=== PATIENT | male | born 1955 | race Caucasian/White ===

== ENCOUNTER → 2021-10-01 13:04 | Outpatient (BNVA) | payer OTHER, SELFPAY | PROVIDERS: PCP Internal Medicine; Visit Provider Hospitalist ==

== ENCOUNTER 2021-11-08 16:08 | Outpatient (REF) | payer OTHER, SELFPAY ==
--- NOTE | ~2021-11-08 | CT_ITS ---
EXAMINATION: CT CHEST SCREENING CLINICAL INFORMATION: Smoking for 38 years. One pack a day. COMPARISON: CT chest 06/01/2020 from [facility]. TECHNIQUE: Multidetector volumetric CT imaging of the chest is performed without contrast using low dose technique. Additional 2D coronal and sagittal reformatted images and axial 3D maximum intensity projection (MIP) images are generated on the CT workstation. This CT examination was performed using dose optimization techniques as appropriate, variously including the following: *Automated exposure control *Adjustment of mA and/or kV according to patient size (this includes techniques or standardized protocols for targeted exams where dose is matched to indication/reason for exam; i.e. extremities or head) *Use of iterative reconstruction technique DLP: 63 mGy-cm FINDINGS: LUNGS: The lungs are well inflated with 4.5 mm nodule left lower lobe superior segment, axial image 20/6, 3 mm nodule right lower lobe image 260/6, 1 mm calcified nodule left lower lobe superior segment, axial image 191/6, 1 mm calcification right lower lobe, axial image 337/6, and 5 mm nodule right middle lobe, axial image 345/6. MEDIASTINUM: The heart size and great vessels are normal caliber. There is no pericardial effusion. Central trachea and the bronchi are widely patent. No abnormal size mediastinal or hilar lymph nodes seen. No pericardial effusion seen. The thyroid lobes are symmetrical and normal. PLEURA: There is no pleural effusion. No pleural mass or thickening. AXILLA: No lymphadenopathy. UPPER ABDOMEN: Visualized liver, spleen, pancreas and bilateral adrenal glands are unremarkable. The gallbladder has been surgically removed. OSSEOUS STRUCTURES: There is ventral spondylosis mid and lower dorsal spine. No lytic or sclerotic process seen. CT/CT lung screening IMPRESSION: Multiple pulmonary nodules are stable compared to outside CT chest 06/01/2020. ASSESSMENT: Lung-RADS category 2: Benign RECOMMENDATION: Low-dose annual CT chest.
== END 2021-11-08 16:09 | disposition home or self-care (01) ==
LOC: HO.CT 16:08
PROVIDERS: PCP Internal Medicine; Visit Provider Physician Assistant Medical
DX: Z12.2 Encounter for screening for malignant neoplasm of respiratory organs (principal); Z87.891 Personal history of nicotine dependence
CPT/HCPCS: 71271; G0296

== ENCOUNTER → 2022-04-02 09:15 | Outpatient (BNVA) | payer MEDICARE, SELFPAY | PROVIDERS: PCP Internal Medicine; Visit Provider Hospitalist | DX: R91.8 Other nonspecific abnormal finding of lung field (principal); R05.9 Cough, unspecified; G47.33 Obstructive sleep apnea (adult) (pediatric); G47.34 Idiopathic sleep related nonobstructive alveolar hypoventilation; Z87.891 Personal history of nicotine dependence | CPT/HCPCS: 99212 ==

== ENCOUNTER 2022-09-02 08:59 | Outpatient (REF) | payer MEDICARE, SELFPAY ==
--- NOTE | 2022-09-02 11:08 | PFT_ITS ---
INDICATION: Dyspnea. SPIROMETRY: FEV1 to FVC of 83% with an FEV1 of 2.93 L, which is 85% predicted and FVC of 3.52 L, which is 75% predicted. No significant response to bronchodilators noted. Maximum voluntary ventilation 99% predicted. LUNG VOLUMES: Total lung capacity 88% predicted with an expiratory reserve volume of 21% predicted. DIFFUSION CAPACITY: DLCO 85% predicted. COMPARISONS: None. INTERPRETATION: No obstructive nor restrictive ventilatory defects identified. No significant response to bronchodilators noted. Normal maximum voluntary ventilation. Lung volumes are within normal limits. There is a decrease in the expiratory reserve volume secondary to an elevated BMI. Diffusion capacity is within normal limits. Otherwise, clinical correlation warranted. Oskar Castillo MD MR/MODL / [id number]
== END 2022-09-02 09:00 | disposition home or self-care (01) ==
LOC: HO.RESP 08:59
PROVIDERS: PCP Internal Medicine; Visit Provider Hospitalist
DX: R05.9 Cough, unspecified (principal)
CPT/HCPCS: 94060; 94727; 94729

== ENCOUNTER → 2022-09-26 09:07 | Outpatient (BNVA) | payer MEDICARE, SELFPAY | PROVIDERS: PCP Internal Medicine; Visit Provider Hospitalist | DX: G47.33 Obstructive sleep apnea (adult) (pediatric) (principal); G47.34 Idiopathic sleep related nonobstructive alveolar hypoventilation; R05.9 Cough, unspecified; R91.8 Other nonspecific abnormal finding of lung field; Z87.891 Personal history of nicotine dependence | CPT/HCPCS: 99212 ==

== ENCOUNTER 2022-12-31 07:47 | Outpatient (REF) | payer MEDICARE, SELFPAY ==
--- NOTE | ~2022-12-31 | CT_ITS ---
EXAMINATION: LUNG CANCER SCREENING CT CHEST WITHOUT CONTRAST CLINICAL INFORMATION: Former smoker with 20 pack year history, quit 10 years ago COMPARISON: 11/08/2021 TECHNIQUE: Multidetector volumetric CT imaging of the chest was obtained noncontrast using low dose screening CT technique. Axial thin section 0.625 mm reformations in soft tissue and lung windows were obtained. Sagittal and coronal reformations were obtained. Axial MIP images were also created and reviewed. This CT examination was performed using dose optimization techniques as appropriate, variously including the following: *Automated exposure control *Adjustment of mA and/or kV according to patient size (this includes techniques or standardized protocols for targeted exams where dose is matched to indication/reason for exam; i.e. extremities or head) *Use of iterative reconstruction technique TOTAL EXAM DLP: 64 mGy-cm. FINDINGS: PULMONARY NODULES (see contreras images): No suspicious pulmonary nodules. Stable 4.6 mm mean diameter nodule in the superior segment of the left lower lobe, 3 mm nodule within the middle lobe and 4.6 mm nodule in the middle lobe. Stable punctate nodule right upper lobe. There are a couple punctate calcified granulomata. LUNGS / PLEURA: Minimal emphysema No pleural effusion or pneumothorax. MEDIASTINUM / YAZMIN: Heart normal in size without pericardial effusion. Stable mild aneurysmal dilatation of ascending aorta measuring up to 4.2 cm. Great vessels normal caliber. No lymphadenopathy. Coronary calcifications absent. Imaged thyroid gland unremarkable. CHEST WALL / AXILLA: Unremarkable. UPPER ABDOMEN: Included portions grossly unremarkable allowing for limitations in technique. OSSEOUS STRUCTURES: No acute or suspicious osseous abnormalities. CT/CT lung screening IMPRESSION: * No evidence of pulmonary malignancy. * There are no pulmonary nodules that meet criteria for short interval follow-up at this time. * Stable mild aneurysmal dilatation of ascending aorta measuring 4.2 cm. ASSESSMENT: Lung RADS category: 2. Benign appearance or behavior. Nodules with a very low likelihood of becoming a clinically active cancer due to size or lack of growth. Continue annual screening with low-dose CT in 12 months. Probability of malignancy less than 1%. INCIDENTAL FINDINGS (S CATEGORY): None. RECOMMENDATION: Follow up low dose CT chest in 1 year.
== END 2022-12-31 07:48 | disposition home or self-care (01) ==
LOC: HO.CT 07:47
PROVIDERS: PCP Internal Medicine; Visit Provider Physician Assistant Medical
DX: Z12.2 Encounter for screening for malignant neoplasm of respiratory organs (principal); F17.210 Nicotine dependence, cigarettes, uncomplicated
CPT/HCPCS: 71271

== ENCOUNTER 2023-12-23 10:27 | Outpatient (AMB) | payer MEDICARE, SELFPAY ==
[2023-12-23 10:33] VITALS: PULSE 58; O2SAT 96; BMI 29.6
--- NOTE | 2023-12-23 10:33 | A.OFFVIS_ITS ---
Intake Vital Signs 12/23/23 10:33 Height 5 ft 11 in Weight 212 lb BMI 29.6 Pulse 58 Pulse Source Pulse Oximeter Pulse Oximetry (%) 96 Oxygen Delivery Method Room Air Intake Visit Reasons: Obstructive sleep apnea Bi Consultant Required: No Allergies No Known Allergies Allergy (Mild, Unverified 12/23/23 10:34) N/A HPI HPI Comments History of Present Illness Details The patient is a 68-year-old gentleman with a known history of high blood pressure in addition to a CVA. He was having evidence of daytime drowsiness and therefore the patient underwent a sleep study. During the sleep study which was a home sleep study the patient did have evidence of nocturnal hypoxia and also an AHI of 10 events per hour consistent with mild sleep apnea. The patient started on PAP therapy. He has tried multiple masks. The nasal pillows, P 10 has been the most comfortable mask for him. We were able to download his machine. His AHI is down to 0.1. His average pressure is 12 cm. The machine is set up APAP with a ramp of 4 then starts at 8-16.The patient tolerated the pressures well. He is concerned that he does have some air leakage. Have reassured him that he is getting enough therapy that even if he has some air leakage is not affecting his response to therapy. The patient did have his mask on and we were able to check mask fit on the settings. The patient is fit was perfectly fine. Explained to him that the air will exit through the mask and therefore feel like is actually leaking. This sleep study also demonstrated that he had significant hypoxia. Therefore, in view of his underlying cardiovascular and cerebrovascular studies the patient should have a nocturnal oximetry to make sure that he is getting adequate therapy. I did talk to his [employer] company and they will perform this while he is of CPAP. also to note the patient is a former smoker. He quit about 10 years ago or less. The patient smoked for most of his life. At this point the patient still qualifies for the lung cancer screening program. I will refer him at this time. In the meantime the patient has had CT scans in the past demonstrating pulmonary nodules. He has not had a CAT scan more than a year. 04/02/2022 the patient is here for a pulm onary follow-up visit. Overall the denys ent has been doing well on the CPAP. The CPAP therapy has been affecting beneficial. He uses it more than 4 hours a night. Average pressure is 13. His AHI is below 1. he is tolerating the P 10 nasal pillows with a chinstrap. Working well. He does complaint of a worsening cough. Sometimes is productive in nature and typically worse in the morning. [id number] severity. Sometimes he feels is coming from his chest. He is wondering if he has COPD. He is participating in the lung cancer screening program. we did review his CT scan without any significant emphysema. He does have some pulmonary nodules that do need follow-up. He is scheduled to have a repeat CT scan through the lung cancer screening program in October 2022. the patient does not have any inhalers. I do believe that his cough is mainly in upper airway cough syndrome specially after using the CPAP pushing his secretions down to his post superior pharynx. I do recommend that he provides nasal washings. If the patient is no better he can always get an x-ray. The patient will return 6 months and will perform pulmonary function studies at that time. 09/26/2022 the patient is here for a pul monary follow-up visit. The patient overall is doing well. He has been using the CPAP. The CPAP therapy continues to be affecting beneficial. Does use it for more than 4 hours a night. He has been getting supplies regularly. From a respiratory status he is also doing better. Still has some dyspnea on exertion. Mild in severity. He is active exercising and this is improving his overall exercise capacity. He is working on weight management. We did review his pulmonary function studies demonstrating normal lung Lung capacity. The patient is scheduled to have a repeat CT scan as part of the lung cancer screening program sometime in October 2022. otherwise patient is without any other concerns. 12/23/2023 the patient is here for pulmonary follow-up visit. The patient has been doing well on the CPAP. The CPAP therapy continues to be affecting and beneficial. He does use it for more than 4 hours a night. His average AHI appears to be less than 1. His average pressure is around 12. Therefore the APAP is set up 8-14 which is perfect. He is using the nasal pillows. he is using the chinstrap and this is helping him with the early. He has no significant air leak at this time. The patient states that he had COVID back few months ago. Although was not too bad. Denies any respiratory issues with it. Does have some fevers. The patient also has been participating in the lung cancer screening program. He does have a CT scan of the chest coming up in the few weeks. Will follow-up with a CT scan at that time. The patient is also wondering about other alternatives to CPAP. 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 I did not advise him on the inspire as due to the fact that this is the surgical procedure and does have risk and is not as effective as CPAP. he is going to consider the oral mandibular device. If he has any other issues he will call for an earlier assessment. Otherwise follow- up in a year's time. [facility] Medical History (Updated 01/06/23 @ 07:57 by Maryana De La Torre PA-C) History of CVA (cerebrovascular accident) Mild ascending aorta dilatation BPH (benign prostatic hyperplasia) SNHL (sensorineural hearing loss) GERD (gastroesophageal reflux disease) Hyperlipidemia Hypertension Personal history of nicotine dependence Pulmonary nodules Nocturnal hypoxia [place] (obstructive sleep apnea) Surgical History (Updated 11/05/21 @ 09:29 by Maryana De La Torre PA-C) History of prostate biopsy History of lithotripsy History of adenoidectomy History of squamous cell carcinoma excision History of endoscopy History of colonoscopy Social History (Updated 11/08/21 @ 13:31 by Maryana De La Torre PA-C) Patient Tobacco Use Status: Former Tobacco user Quit Date: 2014 Tobacco use type: Cigarette Years Smoked: onset 18, 1/2-1ppd x 40yr, 30PYH, quit 2014 Review of Systems Const Denies night sweats ENT Denies change in voice, Denies lip swelling, Denies mouth pain, Reports nasal congestion, Reports nasal discharge and Denies tongue swelling Card Denies chest pain and Denies dyspnea on exertion Resp Denies chest congestion, Denies cough and Denies dyspnea on exertion GI Denies abdominal pain Musc Denies no additional complaints Neuro Denies Neuro-related abnormal movements Psych Denies no additional complaints Oral/Lymph Denies easy bleeding and Denies lymphadenopathy Aller/Immun Denies lip swelling and Denies tongue swelling Physical Exam Vital Signs: Last Vital Signs Pulse 58 12/23/23 10:33 Pulse Ox 96 12/23/23 10:33 Oxygen Delivery Method Room Air 12/23/23 10:33 BMI result Body Mass Index 29.6 Const General: alert Chest Chest palpation & inspection: normal inspection of the chest Resp Auscultation: clear to auscultation bilaterally, no crackles, no rales, no rhonchi and no wheezes Cardio Rate: regular rate Rhythm: regular rhythm Heart sounds: S1 normal heart sound present and S2 normal heart sound present GI Palpation (GI): Soft to palpation and nontender Auscultation: normal bowel sounds General: Yes no CVA tenderness Back/Spine/Pelvis Back: no CVA tenderness Assessment & Plan Assessment & Plan (1) Pulmonary nodules: Code(s): R91.8 - Other nonspecific abnormal finding of lung field (2) Former heavy tobacco smoker: Code(s): Z87.891 - Personal history of nicotine dependence (3) [place] (obstructive sleep apnea): Code(s): G47.33 - Obstructive sleep apnea (adult) (pediatric) (4) Nocturnal hypoxia: Code(s): G47.34 - Idiopathic sleep related nonobstructive alveolar hypoventilation Plan continue APAP 8-14, p10 nasal pillows chinstrap continue lung cancer screening program, LDCT 12/2023 nasal rinsing prior to CPAP follow-up in 12 months Coding Level of Care Code Est Pt Level 4 (16233) Diagnoses Pulmonary nodules R91.8 Former heavy tobacco smoker Z87.891 [place] (obstructive sleep apnea) G47.33 Nocturnal hypoxia G47.34 Time Spent (min) 18
== END 2023-12-23 11:01 | disposition home or self-care (01) ==
PROVIDERS: PCP Internal Medicine; Visit Provider Hospitalist
DX: R91.8 Other nonspecific abnormal finding of lung field (principal); Z87.891 Personal history of nicotine dependence; G47.33 Obstructive sleep apnea (adult) (pediatric); G47.34 Idiopathic sleep related nonobstructive alveolar hypoventilation
CPT/HCPCS: 99214

== ENCOUNTER → 2023-12-23 10:27 | Outpatient (BNVA) | payer MEDICARE, SELFPAY | PROVIDERS: PCP Internal Medicine; Visit Provider Hospitalist | DX: R91.8 Other nonspecific abnormal finding of lung field (principal); G47.33 Obstructive sleep apnea (adult) (pediatric); G47.34 Idiopathic sleep related nonobstructive alveolar hypoventilation; Z87.891 Personal history of nicotine dependence | CPT/HCPCS: 99212 ==

== ENCOUNTER 2024-01-07 15:38 | Outpatient (REF) | payer MEDICARE, SELFPAY ==
--- NOTE | ~2024-01-07 | CT_ITS ---
EXAMINATION: CT CHEST SCREENING CLINICAL INFORMATION: Personal history of nicotine dependence. Former smoker. One pack per day for 20 years. Quit 10 years ago. COMPARISON: 12/31/2022 TECHNIQUE: Multidetector volumetric CT imaging of the chest is performed without contrast using low dose technique. Additional 2D coronal and sagittal reformatted images and axial 3D maximum intensity projection (MIP) images are generated on the CT workstation. This CT examination was performed using dose optimization techniques as appropriate, variously including the following: *Automated exposure control. *Adjustment of mA and/or kV according to patient size (this includes techniques or standardized protocols for targeted exams where dose is matched to indication/reason for exam; i.e. extremities or head). *Use of iterative reconstruction technique. DLP: 118 mGy-cm FINDINGS: LUNGS: Minimal emphysematous changes are again seen. Four pulmonary nodules are seen which are unchanged when compared to the prior study with the two largest measuring 6.0 cm and 4.5 cm in the superior segment of the left lower lobe (6:193) and the right middle lobe (6:373). The lungs are otherwise clear with no evidence of inflammation or new or worrisome nodules. MEDIASTINUM: The mediastinum is normal. CORONARY ARTERY CALCIFICATION: None visualized on this study. PLEURA: There is no pleural effusion. No pleural mass or thickening. AXILLA: No lymphadenopathy. UPPER ABDOMEN: Unremarkable. Status post cholecystectomy. OSSEOUS STRUCTURES: Unremarkable. CT/CT lung screening IMPRESSION: Unremarkable examination. ASSESSMENT: Lung-RADS category 2: Benign. RECOMMENDATION: Routine annual low-dose CT screening in 12 months.
== END 2024-01-07 15:39 | disposition home or self-care (01) ==
LOC: HO.CT 15:38
PROVIDERS: PCP Internal Medicine; Visit Provider Nurse Practitioner Family
DX: Z12.2 Encounter for screening for malignant neoplasm of respiratory organs (principal); Z87.891 Personal history of nicotine dependence
CPT/HCPCS: 71271

== ENCOUNTER 2025-01-13 13:34 | Outpatient (REF) | payer MEDICARE, SELFPAY ==
--- NOTE | ~2025-01-13 | CT_ITS ---
CLINICAL HISTORY: Z87.891 - Personal history of nicotine dependence CT lung cancer screening (LDCT) Comparison: CT/REG/AR/SR - CT LUNG SCREENING - 01/07/24 15:47 EDT Technique: Axial CT images of the chest using low-dose technique. Referring provider counseled the patient on shared decision-making for LDCT screening. Additional counseling was provided on smoking cessation. Effective radiation dose total: DLP 123.6 mGycm, CTDIvol 3 mGy. Findings: Lung: Mild emphysema. Stable 6 mm nodule of the right middle lobe series 4, image 107. Stable 3 mm nodule of the right upper lobe image 81. Stable 5.3 mm nodule of the left lower lobe image 63. Coronary artery calcifications: None Limited upper abdomen: Unremarkable Other: None Impression: LungRADS 2 - Benign Appearance: Continue annual screening with low dose Chest CT in 12 months. ##L2# Category 1: Normal; continue annual screening Category 2: Benign appearance or behavior, continue annual screening Category 3: Probably benign, [address] recommended Category 4A: Suspicious, [address] recommended; may consider PET/CT Category 4B: Suspicious, Additional diagnostics and/or tissue sampling recommended Category 4X: Suspicious, Additional diagnostics and/or tissue sampling recommended Category 0: Recalls (incomplete screen due to Incomplete coverage, Noise, Respiratory motion, Expiration, Obscured by acute abnormality) This document has been electronically signed by: Meliza Quezada MD on 01/16/2025 12:52:46
--- OUTSIDE RECORDS SUMMARY | 2025-01-13 15:23 | XMS_ITS | Encounter Summary ---
Author Organization [facility] Address [address] [place] [address] [place] [id number] Phone Care Team Providers Care And Drying Supervisor Cooking Casing Name Role Phone Sarkis Teague MD Primary Care Provider [phone] Ajit Hu MD Unavailable [phone] Encounter Details Date Type Department Care Team (Late st Contact Info) Description 05/25/2023 Procedure Pass [facility] Endoscopy Admitting Dept Virtual Department [address] [place] [address] Social History Tobacco Use Types Packs/Day Years Used Date Smoking Tobacco: Former Cigarettes 0.8 20 0 10/21/1971 - 10/21/1991 Smokeless Tobacco: Never Alcohol Use Standard Drinks/Week Comments Yes 0 (1 standard drink = 0.6 oz pur e alcohol) 3 drinks/month, wine Child or Family Care Answer Date Record ed Do you have problems with on e of the following making it difficult for you to work, study, or receive health care? No 06/20/2021 Education Answer Date Recorded Are you interested in help w ith more adult education (for example, completing high school, GED, job training, learning the [place] language, technical skills, or developing parenting skills)? No 06/20/2021 Are you concerned about learning? Not on file 06/20/2021 No 06/20/2021 Yes 06/20/2021 Food Answer Date Recorded Within the past 6 months we worried whether our food would run out before we got money to buy more. Never True 06/20/2021 Within the past 6 months the food we bought just didn't last and we didn't have enough money to get more. Never True Residential Stability Answer Date Recor ded What is your housing situation today? I have saul cai 06/20/2021 How many times have you move d in the past 12 months? Zero (I did not move) 06/20/2021 Paying for Meds Answer Date Recorded Do you have trouble paying for medicines? No 06/20/2021 Paying Utility Bills Answer Date Record ed Do you have trouble paying your heating or elect ricity bill? No 06/20/2021 Transportation Answer Date Recorded Has the lack of transportati on kept you from medical appointments or from getting medications? No 06/20/2021 Unemployment Answer Date Recorded Are you currently unemployed or working on a part-time or temporary basis, and looking for work? I choose not to answer 06/20/2021 Digital Access Answer Date Recorded No 03/06/2023 No 03/06/2023 Reliable internet access at home? Not on file 03/06/2023 Device with a working camera? Not on file Sex and Gender Information Value Date Recorded Sex Assigned at Male 06/19/2020 7:43 PM EDT Gender Identity Male 06/19/2020 7:43 PM EDT Sexual Orientation Not on file documented as of this encounter Plan of Treatment Upcoming Encounters Date Type Department Care Team (Late st Contact Info) Description 01/27/2025 8:00 AM EDT Appointment [facility] Internal Medicine [address] [place] [address] Sarkis Teague MD [address] [place] [address] [email or web address] documented as of this encounter Visit Diagnoses Not on filedocumented in this encounter Additional Health Concerns Assessment Noted Time PHQ-2 Depression Total Score: 0 06/24/20 22 6:59 AM EDT documented as of this encounter Care Teams And Drying Supervisor Cooking Casing Relationship Specialty Start Date End Date Sarkis Teague MD [address] [place] [address] [email or web address] PCP - General 09/10/17 Ajit Hu MD [address] [place] [id number] Cardiology 02/08/21 documented as of this encounter Additional Source Comments The information contained in this document represents components of the legal health record. It is not the complete legal health record.[facility]
--- OUTSIDE RECORDS SUMMARY | 2025-01-13 15:23 | XMS_ITS | Encounter Summary ---
Author Organization [facility] Address [address] [place] [address] Phone Care Team Providers Care Welder Repair Name Role Phone Sarkis Teague MD Unavailable [phone] Mikaela Avila PHONOGRAPH MECHANIC Unavailable [phone] Argentina Jeffries PHONOGRAPH MECHANIC Unavailable [phone] Sarkis Teague MD Primary Care Provider Ajit Hu MD Unavailable [phone] Encounter Details Date Type Department Care Team (Late st Contact Info) Description 05/22/2020 Procedure Pass [facility], Ct Scan - [address] [address] Social History Tobacco Use Types Packs/Day Years Used Date Smoking Tobacco: Former Cigarettes 0.5 15 1 973 - 1988 Smokeless Tobacco: Never Alcohol Use Standard Drinks/Week Comments Yes 0 (1 standard drink = 0.6 oz pur e alcohol) 4 to 5 eugene per month Sex and Gender Information Value Date Recorded Sex Assigned at Male 06/19/2020 7:43 PM EDT Gender Identity Male 06/19/2020 7:43 PM EDT Sexual Orientation Not on file documented as of this encounter Plan of Treatment Upcoming Encounters Date Type Department Care Team (Late st Contact Info) Description 01/27/2025 8:00 AM EDT Appointment [facility] Internal Medicine [address] [place] [address] Sarkis Teague MD [address] [place] [address] documented as of this encounter Visit Diagnoses Not on filedocumented in this encounter Additional Health Concerns Infection Onset Date Last Indicated Resolved Time CoV-Exposed Comment:Recent close contact documented in the COVID-19 PCR/PRO order 06/29/2021 07/03/2021 07/14/2021 1:22 AM E DT Assessment Noted Time PHQ-2 Depression Total Score: 0 11/14/19 8:30 AM EST documented as of this encounter Care Teams Welder Repair Relationship Specialty Start Date End Date Sarkis Teague MD [address] [place] [address] PCP - General 09/10/17 Sarkis Teague MD [address] [place] [address] Historical LMR Provider 07/27/17 02/07/21 Mikaela Avila, PHONOGRAPH MECHANIC [address] [place] [address] Historical LMR Provider 07/27/17 Argentina Jeffries PHONOGRAPH MECHANIC [address] [place] [address] Historical LMR Provider 07/27/17 02/07/21 Ajit Hu MD [address] [place] [id number] Cardiology 02/08/21 documented as of this encounter Additional Source Comments The information contained in this document represents components of the legal health record. It is not the complete legal health record.[facility]
--- OUTSIDE RECORDS SUMMARY | 2025-01-13 15:23 | XMS_ITS | Encounter Summary ---
Author Organization [facility] Address [address] [place] [address] Phone Care Team Providers Care Table Attendant Name Role Phone Sariks Teague MD Unavailable [phone] Mikaela Avila CAREER COUNSELOR Unavailable [phone] Argentina Jeffries CAREER COUNSELOR Unavailable [phone] Sarkis Teague MD Primary Care Provider [phone] Ajit Hu MD Unavailable [phone] Encounter Details Date Type Department Care Team (Late st Contact Info) Description 05/22/2020 Procedure Pass [address] [place] [address] Social History Tobacco Use Types Packs/Day Years Used Date Smoking Tobacco: Former Cigarettes 0.5 15 1 973 - 1987 Smokeless Tobacco: Never Alcohol Use Standard Drinks/Week Comments Yes 0 (1 standard drink = 0.6 oz pur e alcohol) 4 to 5 eugene per month Sex and Gender Information Value Date Recorded Sex Assigned at Male 06/19/2020 7:43 PM EDT Gender Identity Male 06/19/2020 7:43 PM EDT Sexual Orientation Not on file documented as of this encounter Last Filed Vital Signs Vital Sign Reading Time Taken Comments Blood Pressure - - Pulse - - Temperature - - Respiratory Rate - - Oxygen Saturation - - Inhaled Oxygen Concentration - - Weight 97.5 kg (215 lb) 05/23/2020 1:35 PM EDT Height 180.3 cm (5' 11 ) 05/23/2020 1:35 PM EDT Body Mass Index 29.99 05/23/2020 1:35 PM EDT documented in this encounter Plan of Treatment Upcoming Encounters Date Type Department Care Team (Late st Contact Info) Description 01/27/2025 8:00 AM EDT Appointment [facility] Internal Medicine [address] [place] [address] Sarkis Teague MD [address] [place], [place] documented as of this encounter Visit Diagnoses Not on filedocumented in this encounter Additional Health Concerns Infection Onset Date Last Indicated Resolved Time CoV-Exposed Comment:Recent close contact documented in the COVID-19 PCR/PRO order 06/29/2021 07/03/2021 07/14/2021 1:22 AM E DT Assessment Noted Time PHQ-2 Depression Total Score: 0 11/14/19 20 8:30 AM EST documented as of this encounter Care Teams Table Attendant Relationship Specialty Start Date End Date Sarkis Teague MD [address] [place] [address] PCP - General 09/10/17 Sarkis Teague MD [address] [place] [address] Historical LMR Provider 07/27/17 02/07/21 Mikaela Avila NP [address] [place] [address] Historical LMR Provider 07/27/17 Argentina Jeffries NP 40 [facility] [place] [address] Historical LMR Provider 07/27/17 02/07/21 Ajit Hu MD [address] [place] [address] Cardiology 02/08/21 documented as of this encounter Additional Source Comments The information contained in this document represents components of the legal health record. It is not the complete legal health record.[facility]
--- OUTSIDE RECORDS SUMMARY | 2025-01-13 15:23 | XMS_ITS | Encounter Summary ---
Author Organization [facility] Address [address] [place] [address] Phone Care Team Providers Care Customer Counter Representative Name Role Phone Sarkis Teague MD Unavailable Mikaela Avila PRODUCTION PLANNING MANAGER Unavailable Argentina Jeffries PRODUCTION PLANNING MANAGER Unavailable [phone] Sarkis Teague MD Primary Care Provider [phone] Ajit Hu MD Unavailable [phone] Encounter Details Date Type Department Care Team (Late st Contact Info) Description 10/16/2017 Procedure Pass [place] Admitting Dept - Virtual Department [address] [place] [address] Social History Tobacco Use Types Packs/Day Years Used Date Smoking Tobacco: Former Smokeless Tobacco: Never Sex and Gender Information Value Date Recorded Sex Assigned at Male 06/19/2020 7:43 PM EDT Gender Identity Male 06/19/2020 7:43 PM EDT Sexual Orientation Not on file documented as of this encounter Plan of Treatment Upcoming Encounters Date Type Department Care Team (Late st Contact Info) Description 01/27/2025 8:00 AM EDT Appointment [facility] Internal Medicine [address] [place], [place] [phone] Sarkis Teague MD [address] [place] [address] [email or web address] documented as of this encounter Visit Diagnoses Not on filedocumented in this encounter Additional Health Concerns Infection Onset Date Last Indicated Resolved Time CoV-Exposed Comment:Recent close contact documented in the COVID-19 PCR/PRO order 06/29/2021 07/03/2021 07/14/2021 1:22 AM E DT documented as of this encounter Care Teams Customer Counter Representative Relationship Specialty Start Date End Date Sarkis Teague MD [address] [place] [address] PCP - General 09/10/17 Sarkis Teague MD [address] [place] [address] Historical LMR Provider 07/27/17 02/07/21 Mikaela Avila, PRODUCTION PLANNING MANAGER [address] [place] [address] Historical LMR Provider 07/27/17 Argentina Jeffries, PRODUCTION PLANNING MANAGER [address] [place] [address] Historical LMR Provider 07/27/17 02/07/21 Ajit Hu MD 40 [place] [address] Cardiology 02/08/21 documented as of this encounter Additional Source Comments The information contained in this document represents components of the legal health record. It is not the complete legal health record.[facility]
--- OUTSIDE RECORDS SUMMARY | 2025-01-13 15:23 | XMS_ITS | Encounter Summary ---
Author Organization [facility] Address [address] [place] [address] Phone Care Team Providers Care Biostatistics Teacher Name Role Phone Sarkis Teague MD Unavailable Mikaela Avila CONSULTING ACTUARY Unavailable Argentina Jeffries CONSULTING ACTUARY Unavailable [phone] Sarkis Teague MD Primary Care Provider Ajit Hu MD Unavailable [phone] Encounter Details Date Type Department Care Team (Late st Contact Info) Description 10/14/2017 Procedure Pass [facility] Admitting Dept Virtual Department [address] [place] [address] Social History Tobacco Use Types Packs/Day Years [...] Description 01/27/2025 8:00 AM EDT Appointment [facility] Internal Medicine [address] [place], [place] [phone] Sarkis Teague MD [address] [place] [address] documented as of this encounter Visit Diagnoses Not on filedocumented in this encounter Additional Health Concerns Infection Onset Date Last Indicated Resolved Time CoV-Exposed Comment:Recent close contact documented in the COVID-19 PCR/PRO order 06/29/2021 07/03/2021 07/14/2021 1:22 AM E DT documented as of this encounter Care Teams Biostatistics Teacher Relationship Specialty Start Date End Date Sarkis Teague MD [address] [place] [address] PCP - General 09/10/17 Sarkis Teague MD [address] [place] [address] Historical LMR Provider 07/27/17 02/07/21 Mikaela Avila, CONSULTING ACTUARY [address] [place] [address] Historical LMR Provider 07/27/17 Argentina Jeffries, CONSULTING ACTUARY [address] [place] [address] Historical LMR Provider 07/27/17 02/07/21 Ajit Hu MD [address] [place] [address] Cardiology 02/08/21 documented as of this encounter Additional Source Comments The information contained in this document represents components of the legal health record. It is not the complete legal health record.[facility]
--- OUTSIDE RECORDS SUMMARY | 2025-01-13 15:23 | XMS_ITS | Encounter Summary ---
Author Organization [facility] Address [address] [place] [address] Phone Care Team Providers Care Weaver Dobby Loom Name Role Phone Sarkis Teague MD Unavailable [phone] Mikaela Avila CRANE MAN Unavailable [phone] Argentina Jeffries CRANE MAN Unavailable [phone] Sarkis Teague MD Primary Care Provider [phone] Ajit Hu MD Unavailable [phone] Encounter Details Date Type Department Care Team (Late Contact Info) Description 05/11/2020 Procedure Pass [facility] Admitting Dept Virtual Department [address] [place] [address] Social History Tobacco Use Types Packs/Day Years [...] Encounters Date Type Department Care Team (Late Contact Info) Description 01/27/2025 8:00 AM EDT Appointment [facility] Internal Medicine [address] [place] [address] Sarkis Teague MD [address] [place] [address] documented as of this encounter Visit Diagnoses Not on filedocumented in this encounter Additional Health Concerns Infection Onset Date Last Indicated Resolved Time CoV-Exposed Comment:Recent close contact documented in the COVID-19 PCR/PRO order 06/29/2021 07/03/2021 07/14/2021 1:22 AM E DT Assessment Noted Time PHQ-2 Depression Total Score: 0 11/14/19 8:30 AM EST documented as of this encounter Care Teams Weaver Dobby Loom Relationship Specialty Start Date End Date Sarkis Teague MD [address] [place] [address] PCP - General 09/10/17 Sarkis Teague MD [address] [place] [address] Historical LMR Provider 07/27/17 02/07/21 Mikaela Avila, CRANE MAN [address] [place] [address] Historical LMR Provider 07/27/17 Argentina Jeffries, CRANE MAN [address] [place] [address] Historical LMR Provider 07/27/17 02/07/21 Ajit Hu MD [address] [place] [phone] Cardiology 02/08/21 documented as of this encounter Additional Source Comments The information contained in this document represents components of the legal health record. It is not the complete legal health record.[facility]
--- OUTSIDE RECORDS SUMMARY | 2025-01-13 15:24 | XMS_ITS | Encounter Summary ---
Author Organization [facility] Address [address] [place] [address] Phone Care Team Providers Care Event Services Manager Name Role Phone Sarkis Teague MD Unavailable [phone] Mikaela Avila FLOWERS SALESPERSON Unavailable Argentina Jeffries FLOWERS SALESPERSON Unavailable [phone] Sarkis Teague MD Primary Care Provider Ajit Hu MD Unavailable [phone] Encounter Details Date Type Department Care Team (Late st Contact Info) Description 01/21/2018 Procedure Pass OR Admitting Dept - Virtual Department [address] [place] [address] Social History Tobacco Use Types Packs/Day Years Used Date Smoking Tobacco: Former Smokeless Tobacco: Never Alcohol Use Standard Drinks/Week Comments Yes 0 (1 standard drink = 0.6 oz pur e alcohol) rare Sex and Gender Information Value Date Recorded Sex Assigned at Male 06/19/2020 7:43 PM EDT Gender Identity Male 06/19/2020 7:43 PM EDT Sexual Orientation Not on file documented as of this encounter Plan of Treatment Upcoming Encounters Date Type Department Care Team (Late st Contact Info) Description 01/27/2025 8:00 AM EDT Appointment [facility] Internal Medicine [address] [place], [place] [phone] Sarkis Teague MD [address] [place] [address] documented as of this encounter Visit Diagnoses Not on filedocumented in this encounter Additional Health Concerns Infection Onset Date Last Indicated Resolved Time CoV-Exposed Comment:Recent close contact documented in the COVID-19 PCR/PRO order 06/29/2021 07/03/2021 07/14/2021 1:22 AM E DT documented as of this encounter Care Teams Event Services Manager Relationship Specialty Start Date End Date Sarkis Teague MD [address] [place] [address] PCP - General 09/10/17 Sarkis Teague MD [address] [place] [address] Historical LMR Provider 07/27/17 02/07/21 Mikaela Avila, RYAN [address] [place] [address] Historical LMR Provider 07/27/17 Argentina Jeffries FLOWERS SALESPERSON [address] [place] [address] Historical LMR Provider 07/27/17 02/07/21 Ajit Hu MD 40 [place] [phone] Cardiology 02/08/21 documented as of this encounter Additional Source Comments The information contained in this document represents components of the legal health record. It is not the complete legal health record.[facility]
--- OUTSIDE RECORDS SUMMARY | 2025-01-13 15:24 | XMS_ITS | Encounter Summary ---
Author Organization [facility] Address [address] [place] [address] Phone Care Team Providers Care Outdoor Education Teacher Name Role Phone Sarkis Teague MD Unavailable [phone] Mikaela Avila RAIL LAYER Unavailable Argentina Jeffries RAIL LAYER Unavailable [phone] Sarkis Teague MD Primary Care Provider [phone] Ajit Hu MD Unavailable [phone] Encounter Details Date Type Department Care Team (Late st Contact Info) Description 11/09/2017 Procedure Pass [facility], [address] [address] Social History Tobacco Use Types Packs/Day Years [...] Info) Description 01/27/2025 8:00 AM EDT Appointment [facility] Internal Medicine [address] [place], [place] [phone] Sarkis Teague MD [address] [place] [address] documented as of this encounter Visit Diagnoses Not on filedocumented in this encounter Additional Health Concerns Infection Onset Date Last Indicated Resolved Time CoV-Exposed Comment:Recent close contact documented in the COVID-19 PCR/PRO order 06/29/2021 07/03/2021 07/14/2021 1:22 AM E DT documented as of this encounter Care Teams Outdoor Education Teacher Relationship Specialty Start Date End Date Sarkis Teague MD [address] [place] [address] PCP - General 09/10/17 Sarkis Teague MD [address] [place] [address] Historical LMR Provider 07/27/17 02/07/21 Mikaela Avila, RAIL LAYER [address] [place] [address] Historical LMR Provider 07/27/17 Argentina Jeffries, RAIL LAYER [address] [place] [address] Historical LMR Provider 07/27/17 02/07/21 Ajit Hu MD [address] [place] [address] Cardiology 02/08/21 documented as of this encounter Additional Source Comments The information contained in this document represents components of the legal health record. It is not the complete legal health record.[facility]
--- OUTSIDE RECORDS SUMMARY | 2025-01-13 15:24 | XMS_ITS | Encounter Summary ---
Author Organization [facility] Address [address] [place] [address] [place] [address] Phone Care Team Providers Care Tablet Tester Name Role Phone Sarkis Teague MD Unavailable [phone] Mikaela Avila SUPERVISOR MACHINE WORKERS Unavailable [phone] Argentina Jeffries SUPERVISOR MACHINE WORKERS Unavailable [phone] Sarkis Teague MD Primary Care Provider Ajit Hu MD Unavailable [phone] Encounter Details Date Type Department Care Team (Latest Contact Info) Description 01/14/2018 Transcribe Orders [facility] Laboratory [address] [place] [address] Dorina Torres MD [address] [place] [address], [address] [place], [place] [phone] [email or web address] 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 [address] [place], [place] [phone] Sarkis Teague MD [address] [place] [address] [email or web address] documented as of this encounter Results * (ABNORMAL) CBC and differential (01/14/2018 8:44 AM EDT) WBC 8.12 3.40 - 11.20 K/uL [facility] RBC 5.27 4.50 - 5.50 M/uL [facility] HGB 16.4 13.0 - 17.0 g/dL [facility] HCT 47.4 40.0 - 51.0 % [facility] PLT 234 130 - 400 K/uL [facility] MCV 89.9 79.0 - 98.0 fL [facility] MCH 31.1 27.0 - 34.8 pg [facility] MCHC 34.6 31.5 - 36.0 g/dL [facility] RDW 12.0 10.8 - 14.6 % [facility] MPV 10.6 9.4 - 12.4 fl [facility] NRBC 0.00 /100 WBCs [facility] ABSOLUTE NRBC 0.00 K/uL [facility] DIFF METHOD Auto [facility] NEUTS 70.0 45.30 - 77.70 % [facility] LYMPHS 17.7 12.30 - 39.70 % [facility] MONOS 9.1 4.10 - 12.80 % [facility] EOS 2.2 0 - 7.2 % [facility] BASOS 0.6 0 - 2.80 % [facility] Granulocytes, immature (%) 0.4 0.0 - 0.9 % [facility] ABSOLUTE NEUTS 5.68 1.40 - 7.70 K/uL [facility] ABSOLUTE LYMPHS 1.44 0.60 - 3.20 K/uL [facility] ABSOLUTE MONOS 0.74(H) 0.11 - 0.59 K/uL [facility] ABSOLUTE EOS 0.18 0.01 - 0.50 K/uL [facility] ABSOLUTE BASOS 0.05 0.00 - 0.08 K/uL [facility] Granulocytes, immature 0.03 0.00 - 0.05 K/uL [facility] Blood 01/14/2018 8:44 AM EDT 01/14/2018 8:48 AM EDT Dorina Torres MD LAB BLOOD ORDERABLES [address] [address] * LFTs (hepatic panel) (01/14/2018 8:44 AM EDT) ALKALINE PHOSPHATASE 88 39 - 117 U/L [facility] TOTAL BILIRUBIN 0.7 0.0 - 1.2 mg/dL [facility] DIRECT BILIRUBIN <0.2 0 - 0.3 mg/dL [facility] Bilirubin (Indirect) NOT CALCULATED 0 - 1.5 mg/dL [facility] AST 19 0 - 37 U/L [facility] ALT 23 0 - 40 U/L [facility] TOTAL PROTEIN 7.3 6.5 - 8.0 g/dL [facility] ALBUMIN 4.7 3.9 - 4.8 g/dL [facility] GLOBULIN 2.6 1 - 4.8 g/dL [facility] A/G Ratio 1.81 1.00 - 4.80 RATIO [facility] Blood 01/14/2018 8:44 AM EDT 01/14/2018 8:48 AM EDT Dorina Torres MD LAB BLOOD ORDERABLES Performing Organization Address City/[facility]/ZIP Co de Phone Number [address] [address] documented in this encounter Visit Diagnoses Diagnosis 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 documented in this encounter Additional Health Concerns Infection Onset Date Last Indicated Resolved Time CoV-Exposed Comment:Recent close contact documented in the COVID-19 PCR/PRO order 06/29/2021 07/03/2021 07/14/2021 1:22 AM E DT documented as of this encounter Care Teams Tablet Tester Relationship Specialty Start Date End Date Sarkis Teague MD [address] [place] [address] PCP - General 09/10/17 Sarkis Teague MD [address] [place] [address] Historical LMR Provider 07/27/17 02/07/21 Mikaela Avila NP [address] [place] [address] Historical LMR Provider 07/27/17 Argentina Jeffries NP [address] [place] [address] Historical LMR Provider 07/27/17 02/07/21 Ajit Hu MD [address] [place] [address] Cardiology 02/08/21 documented as of this encounter Additional Source Comments The information contained in this document represents components of the legal health record. It is not the complete legal health record.[facility]
--- OUTSIDE RECORDS SUMMARY | 2025-01-13 15:24 | XMS_ITS | Encounter Summary ---
Author Organization [facility] Address [address] [place] [address] Phone Care Team Providers Care Administrative Services Coordinator Name Role Phone Sarkis Teague MD Unavailable [phone] Mikaela Avila CAD ENGINEER Unavailable [phone] Argentina Jeffries CAD ENGINEER Unavailable [phone] Sarkis Teague MD Primary Care Provider [phone] Ajit Hu MD Unavailable [phone] Encounter Details Date Type Department Care Team (Late st Contact Info) Description 11/24/2017 Ancillary Orders [facility],Outside Imaging [address] [place], [place] [phone] System, Provider Not In, [place] [address] Social History Tobacco Use Types Packs/Day Years [...] Info) Description 01/27/2025 8:00 AM EDT Appointment [facility] Internal Medicine [address] [place], [place] [phone] Sarkis Teague MD [address] [place], [place] [phone] documented as of this encounter Results * US Abdomen Outside (No Interpretation) (08/17/2017 12:00 AM EST) Narrative SYSTEMGENERATED, DOCUMENTATION - 11/24/2017 10:59 AM EST This study is for PACS storage only and not for interpretation. Provider Not In System PhD IMG OUTSIDE I MAGING W/OUT INTERPRETATION documented in this encounter Visit Diagnoses Not on filedocumented in this encounter Additional Health Concerns Infection Onset Date Last Indicated Resolved Time CoV-Exposed Comment:Recent close contact documented in the COVID-19 PCR/PRO order 06/29/2021 07/03/2021 07/14/2021 1:22 AM E DT documented as of this encounter Care Teams Administrative Services Coordinator Relationship Specialty Start Date End Date Sarkis Teague MD [address] [place] [address] PCP - General 09/10/17 Sarkis Teague MD [address] [place] [address] Historical LMR Provider 07/27/17 02/07/21 Mikaela Avila NP [address] [place] [address] Historical LMR Provider 07/27/17 Argentina Jeffries NP [address] [place] [address] Historical LMR Provider 07/27/17 02/07/21 Ajit Hu MD [address] [place] [address] Cardiology 02/08/21 documented as of this encounter Additional Source Comments The information contained in this document represents components of the legal health record. It is not the complete legal health record.[facility]
--- OUTSIDE RECORDS SUMMARY | 2025-01-13 15:24 | XMS_ITS | Encounter Summary ---
Author Organization [facility] Address [address] [place] [address] Phone Care Team Providers Care Fire Apparatus Engineer Name Role Phone Sarkis Teague MD Primary Care Provider [phone] Ajit Hu MD Unavailable [phone] Encounter Details Date Type Department Care Team (Late st Contact Info) Description 02/14/2021 Ancillary Orders [facility], X-Ray - [address] [place] [address] Rashaun Cherry MD [address] [place] [address] [id number] Rotator cuff syndrome of right shoulder Social History Tobacco Use Types Packs/Day Years Used Date Smoking Tobacco: Former Cigarettes 0.5 15 1 973 - 1988 Smokeless Tobacco: Never Alcohol Use Standard Drinks/Week Comments Yes 0 (1 standard drink = 0.6 oz pur e alcohol) 4 to 5 eugene per month a most Sex and Gender Information Value Date Recorded Sex Assigned at Male 06/19/2020 7:43 PM EDT Gender Identity Male 06/19/2020 7:43 PM EDT Sexual Orientation Not on file documented as of this encounter Plan of Treatment Upcoming Encounters Date Type Department Care Team (Late Contact Info) Description 01/27/2025 8:00 AM EDT Appointment [facility] Internal Medicine [address] [place] [address] Sarkis Teague MD [address] [place] [address] [email or web address] documented as of this encounter Results * XR SHOULDER 2 VIEWS (RIGHT) (02/14/2021 2:42 PM EDT) Anatomical Region Laterality Modality Shoulder Right Computed Radiogr aphy 02/14/2021 1:57 PM EDT Impressions 02/14/2021 1:58 PM EDT No findings to clearly account for the pain. Narrative 02/14/2021 1:58 PM EDT Right shoulder 3 views. No prior. No fracture or worrisome bony lesion. No evidence of chronic rotator cuff tear. No abnormal soft tissue mineralization. There is sclerotic focus overlying the glenoid on the Grashey view without correlate on the other views but probably within the glenoid and probably an incidental small bone island. No marked impingement changes at the humeral head. No marked downward sloping of the acromium. No cervical rib. No pneumothorax in adjacent lung. No bony proliferation or gross erosion at the acromioclavicular joint. Procedure Note Ham Avalos MD - 02/14/2021 Right shoulder 3 views. No prior. No fracture or worrisome bony lesion. Noevidence of chronic rotator cuff tear. No abnormal soft tissuemineralization. There is sclerotic focus overlying the glenoid on theGrashey view without correlate on the other views but probably within theglenoid and probably an incidental small bone island. No markedimpingement changes at the humeral head. No marked downward sloping of theacromium. No cervical rib. No pneumothorax in adjacent lung. No bonyproliferation or gross erosion at the acromioclavicular joint. IMPRESSION: No findings to clearly account for the pain. Rashaun Cherry MD IMG XR UPPER EXT REMITY documented in this encounter Visit Diagnoses Diagnosis Rotator cuff syndrome of right shoulder Rotator cuff syndrome of right shoulder documented in this encounter Additional Health Concerns Infection Onset Date Last Indicated Resolved Time CoV-Exposed Comment:Recent close contact documented in the COVID-19 PCR/PRO order 06/29/2021 07/03/2021 07/14/2021 1:22 AM E DT Assessment Noted Time PHQ-2 Depression Total Score: 0 11/14/19 20 8:30 AM EST documented as of this encounter Care Teams Fire Apparatus Engineer Relationship Specialty Start Date End Date Sarkis Teague MD [address] [place] [address] [email or web address] PCP - General 09/10/17 Ajit Hu MD [address] [place] [address] Cardiology 02/08/21 documented as of this encounter Additional Source Comments The information contained in this document represents components of the legal health record. It is not the complete legal health record.[facility]
--- OUTSIDE RECORDS SUMMARY | 2025-01-13 15:24 | XMS_ITS | Clinical Summary ---
Author Organization [facility] Address [address] [place] [phone] Phone Care Team Providers Care Zoning Technician Name Role Phone Sarkis Teague MD Primary Care Provider [phone] Ajit Hu MD Unavailable [phone] Allergies Active Allergy Reactions Criticality Noted Date Comments Cyclobenzaprine Fatigue Low 05/03/2024 Atorvastatin Myalgia 01/18/2021 Muscle aches Pravastatin Myalgia 12/30/2022 Simvastatin Myalgia 12/30/2022 Medications Medication Sig Dispensed Refills Start Date End Date Status cholecalciferol (VITAMIN D3) 1,000 unit tablet Take 1,000 Units by mouth daily. Active sildenafil (VIAGRA) 100 mg tabletIndications:Ere ctile dysfunction, unspecified erectile dysfunction type TAKE 1 TABLET BY MOUTH ONCE A DAY NEEDED 4 tablet 11 11/18/2019 Active finasteride (PROSCAR) 5 mg tablet Take 5 mg by mouth daily. Active docusate sodium (COLACE) 100 MG capsule Take 100 mg by mouth daily. Active aspirin 81 MG EC tablet Take 81 mg by mouth daily. Active rosuvastatin (CRESTOR) 5 MG tablet Take 5 mg by mouth daily. Active coenzyme Q10 100 mg capsule Take 2 capsules by mouth every morning. 05/12/2023 Active celecoxib (CELEBREX) 100 MG capsule Take 100 mg by mouth daily as needed for pain (specific location in comments) (for neck px). Very rare Active amLODIPine (NORVASC) 10 MG tabletIndications:Ess ential hypertension take one tablet by mouth every day 90 tablet 3 03/21/2024 Active hydroCHLOROthiazide 25 MG tabletIndications:Laura dony hypertension Take 1 tablet (25 mg total) by mouth daily. 90 tablet 5 05/03/2024 Active metoprolol succinate (TOPROL-XL) 50 MG 24 hr tabletIndications:Ess ential hypertension take one tablet by mouth every day 90 tablet 3 07/18/2024 Active omeprazole (PRILOSEC) 40 MG capsule Take 40 mg by mouth every morning. 05/30/2024 Active Active Problems Problem Noted Date Diagnosed Date Skin lesions 04/21/2024 Overview (04/21/2024): Pt saw Dr. Linn at [place] [facility] 03/29/24 for mult skin lesions evaluation dx with solar purpura, dermatosis, moon angiomas, seborrhea keratosis, benign nevi,atypical nevi, hx of SCC, Fhx of malignant melanoma, no suspicious lesions found f/u 1 yr History of cholecystectomy 05/07/2018 Pure hypercholesterolemia 05/07/2018 Acute left-sided low back pain with left-sided s ciatica 10/26/2017 Hills's esophagus 10/26/2017 Congenital spondylolisthesis 10/26/2017 Routine medical exam 10/26/2017 BPH (benign prostatic hyperplasia) 10/16/2017 Assessment & Plan (10/16/2017 4:42 PM EST): Back on home meds Gastroesophageal reflux disease 10/14/2017 Assessment & Plan (10/16/2017 4:37 PM EST): protonix HTN (hypertension) 10/14/2017 Assessment & Plan (10/16/2017 4:41 PM EST): Well controlled. Cont metoprolol Resolved Problems Problem Noted Date Diagnosed Date Resolved Date Cholangitis 10/14/2017 10/17/2017 Assessment & Plan (10/16/2017 4:39 PM EST): ERCP findings consistent with acute ascending cholangitis CBD stone removed, sphincterotomy performed. cont zosyn Bili trending down, 4.5 today, transaminitis improved, leukocytosis resolved S/p lap ace by Dr Brian lu Sludge in gallbladder 10/14/20172017 Assessment & Plan (10/16/2017 4:37 PM EST): Doing well s/p lap ace by Dr Brian lu Bacteremia due to Gram-negative bacteria 10/14/2017 10/17/2017 Assessment & Plan (10/16/2017 4:41 PM EST): Gram negative clive bacteremia secondary cholangitis. Afebrile X 48 h, leukocytosis resolved Repeat cx from 10/15 no growth Cx from 10/14 showing enterobacter cloacae, sens pending. C/w zosyn at present, can likely transition to oral levaquin depending on sensitivities Immunizations Name Administration Dates Next Due COVID-19 (Pre-08/03) Moderna Vaccine, Bivalent 6mo+ 07/10/2022 COVID-19 (Pre-08/03) Moderna Vaccine, mRNA, PF 01/13/2022,08/06/2021,01/09/2021,12/12 Hepatitis B Adult 02/04/2022 Influenza High-Dose Quadriva lent Preservative Free IM 07/10/2023,07/10/2022 Influenza High-Dose Trivalen t Preservative Free IM 07/19/2024,07/28/2019 Influenza Quadrivalent Adjuv anted Preservative Free IM 06/24/2021,07/01/2020 Influenza Quadrivalent Prese rvative Free IM 07/14/2018,08/03/2017 Influenza Trivalent w/ Preservative IM 4 Influenza, Unspecified Formulation 06/24/2021,,01/06/2010 PPD Test 01/27/2022 Pneumococcal conjugate PCV13 11/14/2019 Pneumococcal polysaccharide PPSV23 06/20/2021 RSV Vaccine (monovalent, adjuvanted) 09/07/2023 Td (adult) 5 Lf Tetanus Toxo id, PF, Adsorbed 10/12/2002 Tdap 11/13/2015 Zoster live 10/10/2016 Zoster recombinant 03/25/2023,01/10/2023 Family History Medical History Relation Comments Cancer Brother 1 Lung cancer Brother 1 Testicular cancer Brother 1 Prostate cancer Brother 2 Cancer Father Melanoma Father No Known Problems Mother Relation Status Comments Brother 1 Alive Brother 2 Alive Brother 3 (Age 1 y.o) neurmuscula r condtions Father (Age 71) Mother (Age 51) Sister Alive Social History Tobacco Use Types Packs/Day Years Used Date Smoking Tobacco: Former Cigarettes 0.8 20 0 10/21/1971 - 10/21/1991 Passive Smoke Exposure: Past Smokeless Tobacco: Never Tobacco Cessation:Counseling Given: Not Answered Passive Exposure Comments:father smoked in the house Alcohol Use Standard Drinks/Week Comments Yes 0 (1 standard drink = 0.6 oz pure alcohol) 1 glass of wine a month socially Child or Family Care Answer Date Record ed Do you have problems with on e of the following making it difficult for you to work, study, or receive health care? No 06/20/2021 Education Answer Date Recorded Are you interested in more education? Not on caro e 06/24/2023 Are you concerned about learning? Not on file 06/24/2023 No 06/24/2023 No 06/24/2023 Food Answer Date Recorded Within the past [...] with a working camera? Not on file Intimate Partner Violence Answer Date R ecorded Are you denied basic needs s uch as food, clothing, or medical care? No 07/19/2024 In the past 12 months have y ou been in a relationship with a person who hurts, threatens, or tries to control you? No 07/19/2024 Are you denied basic needs s uch as food, clothing, or medical care? No 07/19/2024 In the past 12 months have y ou been in a relationship with a person who hurts, threatens, or tries to control you? No 07/19/2024 Sex and Gender Information Value Date Recorded Sex Assigned at Male 06/19/2020 7:43 PM EDT Gender Identity Male 06/19/2020 7:43 PM EDT Sexual Orientation Not on file Last Filed Vital Signs Vital Sign Reading Time Taken Comments Blood Pressure 112/68 07/19/2024 3:24 PM EDT Pulse 60 07/19/2024 3:24 PM EDT Temperature 36.7 ??C (98 ??F) 07/19/2024 3:24 PM EDT Respiratory Rate 12 07/19/2024 3:24 PM EDT Oxygen Saturation 95% 07/19/2024 3:24 PM EDT Inhaled Oxygen Concentration - - Weight 100.9 kg (222 lb 6.4 oz) 07/19/2024 3:24 PM EDT Height 177.5 cm (5' 9.88 ) 07/19/2024 3:24 PM ED T Body Mass Index 32.02 07/19/2024 3:24 PM EDT Plan of Treatment Upcoming Encounters Date Type Department Care Team (Late st Contact Info) Description 01/27/2025 8:00 AM EDT Appointment [facility] Medicine [address] [place] [address] Sarkis Teague MD [address] [place] [address] [email or web address] Health Maintenance Due Date Last Done Comments HEPATITIS B SCREENING 1972 COLOGUARD 1999 FIT TEST 1999 FOBT 1999 SIGMOIDOSCOPY 1999 VIRTUAL COLONOSCOPY 1999 HEPATITIS B VACCINES (2 of 3 - 19+ 3-dose series) 03/04/2022 02/04/2022 COVID-19 VACCINE ( season) 2024 09/07/2023, 07/10/2022, 01/13/2022, Additional history exists BLOOD PRESSURE 01/17/2025 07/19/2024 POTASSIUM LEVEL 07/15/2025 07/15/2024, 06/13, 05/14/2023, Additional history exists DEPRESSION SCREENING 07/19/2025 07/19/2024 Adult Td,Tdap Booster 11/13/2025 11/13/2015, 003 COLONOSCOPY 05/25/2026 05/25/2023, 04/13, 11/11/2011 COLORECTAL CANCER SCREENING 05/25/2026 LIPID PANEL 07/15/2029 07/15/2024, 06/13, 12/30/2022, Additional history exists HEPATITIS C SCREENING Completed 05/10/2018 ABDOMINAL AORTIC ANEURYSM (AAA) SCREENING Completed 02/28/2021, 10/14/2017 PNEUMOCOCCAL VACCINES (50+ years) Completed 06/20/2021, 11/14/2019 ZOSTER VACCINES Completed 03/25/2023, 04/0 10/2022, 10/10/2016 RSV VACCINE Completed 09/07/2023 INFLUENZA VACCINE Completed 07/19/2024, , 07/10/2022, Additional history exists SMOKING STATUS SCREENING (Once After 26 Yrs) Completed 07/19/2024 HEPATITIS A VACCINES Aged Out No long er eligible based on patient's age to complete this topic HIB VACCINES Aged Out No longer eligi ble based on patient's age to complete this topic MENINGOCOCCAL VACCINES (ACWY) Aged Out No longer eligible based on patient's age to complete this topic Medical Devices Not on file Procedures Procedure Name Priority Date/Time Associated Diagnosis Comments LIPID PANEL Routine 07/15/2024 10:46 AM EDT Pure hypercholesterolemia COMPREHENSIVE METABOLIC PANEL Routine 07/15/2024 10:46 AM EDT Pure hypercholesterolemia Primary hypertension Hills's esophagus without dysplasia ENDOSCOPY, COLON 05/25/2023 11:06 AM EDT US ABDOMINAL AORTIC SCREENING Routine 02/28/2021 9:12 AM EDT Screening for AAA (abdominal aortic aneurysm) HEPATITIS C ANTIBODY, QUALITATIVE Routine 05/10/2018 8:38 AM EDT Antibody response exam from Last 3 Months or Most Recently Relevant to Health Maintenance Results * (ABNORMAL) Comprehensive metabolic panel (07/15/2024 10:46 AM EDT) SODIUM 142 133 - 146 mmol/L [facility] POTASSIUM 3.8 3.3 - 5.1 mmol/L [facility] CHLORIDE 102 96 - 108 mmol/L [facility] CO2 29 21 - 35 mmol/L [facility] BUN 12 6 - 19 mg/dL [facility] CREATININE 0.80 0.5 - 1.5 mg/dL [facility] GLUCOSE 111(H) 70 - 99 mg/dL [facility] ALBUMIN 4.2 3.9 - 4.8 g/dL [facility] TOTAL PROTEIN 6.9 6.5 - 8.0 g/dL [facility] CALCIUM 9.2 8.4 - 10.3 mg/dL [facility] ALKALINE PHOSPHATASE 99 39 - 117 U/L [facility] TOTAL BILIRUBIN 0.5 0.0 - 1.2 mg/dL [facility] AST 25 0 - 37 U/L [facility] ALT 29 0 - 40 U/L [facility] GLOBULIN 2.7 1 - 4.8 g/dL [facility] EGFR 95 >59 mL/min/1.7 3m2 [facility] Comment:Estimated glomerular filtration rate calculated using the CKD-EPI refit equation. ANION GAP 15 10 - 20 mmol/L [facility] Blood 07/15/2024 10:4 6 AM EDT 07/15/2024 10:51 AM EDT Sarkis Teague MD LAB BLOOD ORDERABLES [facility] [address] [place] [address] * (ABNORMAL) Lipid panel (07/15/2024 10:46 AM EDT) HDL 60 mg/dL [facility] Comment: ? Interpretation <40 mg/dL: Low HDL cholesterol (major risk factor for CHD) Greater than or equal to 60 mg/dL: High HDL cholesterol ( negative risk factor for CHD) HDL - cholesterol is affected by a number of factors, e.g. smoking, excerise, hormones, sex and age. CHOLESTEROL 150 0 - 240 mg/dL [facility] TRIGLYCERIDES 77 30 - 160 mg/dL [facility] LDL 75 50 - 129 mg/dL [facility] Comment: LDL levels in terms of risk for coronary heart disease: <100 mg/dL: Optimal 100-129 mg/dL: Near or above optimal 130-159 mg/dL: Borderline high 160-189 mg/dL: High >190 mg/dL: Very High CARDIAC RISK RATIO 2.5(L) 3.4 - 5.0 C [facility] Blood 07/15/2024 10:4 6 AM EDT 07/15/2024 10:51 AM EDT Sarkis Teague MD LAB BLOOD ORDERABLES [facility] [address] [place] [address] * ENDOSCOPY, COLON (05/25/2023 11:06 AM EDT) Narrative Transcriptions Damien Gallardo MD - 05/25/2023 11:06 AM EDT [facility] Patient Name: Ko Heart MD:: DAMIEN GALLARDO MD, Procedure Date: 05/25/2023 11:06 AM Date of : 1955 Age: 68 Admit Type: Outpatient Gender: Male Room: [facility] Referring MD: SARKIS TEAGUE MD Exam Type: Colonoscopy Indications: Surveillance: Personal history of adenomatouspolyps on last colonoscopy > 3 years ago, Lastcolonoscopy: April 2020 Medications: Monitored Anesthesia Care Procedure: Informed consent was obtained from the patientafter discussion of the indications, limitations, alternatives, benefits, and risks of the procedure. Risks specifically discussed include but are not limited to medication reactions, missed lesions, bleeding, perforation, or the need for emergent surgery. Throughout the procedure, the patient's blood pressure, pulse, end-tidal CO2, and oxygensaturations were monitored continuously. The Olympus adult variable colonoscope [id number] #2 was introduced through the anus and advanced to the cecum, identified by the appendiceal orifice, ileocecal valve and palpation. The colonoscopy was performed without difficulty. The patient tolerated the procedure fairly well. The quality of the bowel preparation was good. The ileocecal valve,appendiceal orifice, and rectum were photographed. Complications: No immediate complications. Estimated blood loss: Minimal. Findings: The perianal and digital rectal examinations were normal. Pertinent negatives include no palpablerectal lesions. A 10 mm polyp was found in the transverse colon at90 cm proximal to the anus. The polyp was semi-pedunculated. The polyp was removed with acold snare. Resection and retrieval were complete. Estimated blood loss was minimal. A 15 mm polyp was found at 70 cm proximal to theanus. The polyp was semi-pedunculated. The polyp wasremoved with a cold snare. Resection and retrieval were complete. Estimated blood loss: 5 mL. Many small-mouthed diverticula were found in the sigmoid colon and descending colon. Retroflexion in the right colon was performed. Non-bleeding internal hemorrhoids were found during retroflexion. The hemorrhoids were moderate. Impression: - One 10 mm polyp in the transverse colon at 90 cm proximal to the anus, removed with a cold snare. Resected and retrieved. - One 15 mm polyp at 70 cm proximal to the anus, removed with a cold snare. Resected andretrieved. - Diverticulosis in the sigmoid colon and in the descending colon. - Non-bleeding internal hemorrhoids. Recommendation: - I will send results of your biopsy to you andyour referring physician or provider. If you do notreceive notification within 3 weeks, please call ouroffice. - No aspirin, ibuprofen, naproxen, or other non-steroidal anti-inflammatory drugs for 7 daysafter polyp removal. - Repeat colonoscopy in 3 years for surveillance of multiple polyps. DAMIEN GALLARDO MD 05/25/2023 11:48:46 AM This report has been signed electronically. Number of Addenda: 0 Note Initiated On: 05/25/2023 11:06 AM Procedure Code(s): --- Professional --- 94854, Colonoscopy, flexible; with removal of tumor(s), polyp(s), or other lesion(s) by snare technique --- Technical --- 73489, Colonoscopy, flexible; with removal of tumor(s), polyp(s), or other lesion(s) by snare technique Diagnosis Code(s): --- Professional --- Z86.010, Personal history of colonic polyps D12.3, Benign neoplasm of transverse colon (hepatic flexure or splenic flexure) K64.8, Other hemorrhoids K57.30, Diverticulosis of large intestine without perforation or abscess without bleeding --- Technical --- Z86.010, Personal history of colonic polyps D12.3, Benign neoplasm of transverse colon (hepatic flexure or splenic flexure) K64.8, Other hemorrhoids K57.30, Diverticulosis of large intestine without perforation or abscess without bleeding CPT copyright 2021 [employer]. All rights reserved. The codes documented in this report are preliminary and upon chisel worker reviewmay be revised to meet current compliance requirements. Procedure Date: 05/25/2023 11:06:[address] [place] [address] Sarkis Teague MD GI PROCEDURE ORDERAB LES * US Abdominal Aortic Screening (02/28/2021 9:12 AM EDT) Anatomical Region Laterality Modality Abdomen Ultrasound 02/28/2021 9:21 AM EDT Impressions 02/28/2021 9:23 AM EDT No abdominal aortic aneurysm. Narrative 02/28/2021 9:23 AM EDT Ultrasonic examination of the aorta for screening purposes is obtained and compared to MR imaging from November 2017 and ultrasound abdomen study October 14, 2017. Proximal aorta is measured at 2.3 x 2.2 cm, tapering to 2.1 x 1.9 cm and then essentially stating unchanged through the bifurcation of the distal aorta measured at 2.1 x 2.0 cm. Right iliac is measured at 1.4 x 1.3 cm and left common iliac 1.2 cm x 1.2 cm. Procedure Note Ham Avalos MD - 02/28/2021 Ultrasonic examination of the aorta for screening purposes is obtained andcompared to MR imaging from November 2017 and ultrasound abdomen studyJan2017. Proximal aorta is measured at 2.3 x 2.2 cm, tapering to 2.1 x 1.9 cm andthen essentially stating unchanged through the bifurcation of the distalaorta measured at 2.1 x 2.0 cm. Right iliac is measured at 1.4 x 1.3 cmand left common iliac 1.2 cm x 1.2 cm. IMPRESSION: No abdominal aortic aneurysm. Sarkis Teague MD IMG US ABDOMEN * Hepatitis C antibody, qualitative (05/10/2018 8:38 AM EDT) HCV Negative Negative [facility] Comment: This is a screening test and should be confirmed with molecular testing Blood 05/10/2018 8:38 AM EDT 05/10/2018 8:42 AM EDT Sarkis Teague MD LAB BLOOD ORDERABLES [facility] [address] [place] [address] from Last 3 Months or Most Recently Relevant to Health Maintenance [facility] Personal/Family Self [address] [place] [address] [facility] Personal/Family Self 1955 [address] [place] [address] Ko Sapp Personal/Family Self 1955 [address] [place] [address] Advance Directives For more information, please contact: [phone] (9AM - 5PM [facility], Thursday-Thursday) * Full Code (Confirmed) (Latest Code Status on File) Date Activated Date Inactivated Comments 10/14/2017 4:58 PM 10/17/2017 3:48 PM Question Answer Comments Code Discussion Comments: patient Care Teams Zoning Technician Relationship Specialty Start Date End Date Sarkis Teague MD [address] [place] [address] PCP - General 09/10/17 Ajit Hu MD [address] [place] [phone] Cardiology 02/08/21 Additional Source Comments The information contained in this document represents components of the legal health record. It is not the complete legal health record.[facility]
--- OUTSIDE RECORDS SUMMARY | 2025-01-13 15:24 | XMS_ITS | Encounter Summary ---
Author Organization [facility] Address [address] [place] [address] Phone Care Team Providers Care Nocturnist Name Role Phone Sarkis Teague MD Primary Care Provider [phone] Ajit Hu MD Unavailable [phone] Encounter Details Date Type Department Care Team (Latest Contact Info) Description 10/29/2022 Transcribe Orders Virtual Department [address] [place] [address] Rashaun Cherry MD [address] [place] [address] [id number] Spondylosis without myelopathy or radiculopathy, lumbar region (Primary Dx) Social History Tobacco Use Types [...] high school, GED, job training, learning the Afghan language, technical skills, or developing parenting skills)? [...] your housing situation today? I have saul sing 06/20/2021 How many times have you move [...] work? I choose not to answer 06/20/2021 Sex and Gender Information Value Date Recorded Sex Assigned at Male 06/19/2020 7:43 PM EDT Gender Identity Male 06/19/2020 7:43 PM EDT Sexual Orientation Not on file documented as of this encounter Plan of Treatment Upcoming Encounters Date Type Department Care Team (Late st Contact Info) Description 01/27/2025 8:00 AM EDT Appointment [facility] Internal Medicine [address] [place] [address] Sarkis Teague MD [address] [place] [address] [email or web address] documented as of this encounter Results * XR LUMBOSACRAL SPINE MINIMUM 6 VIEWS, INCLUDES BENDING VIEWS (11/03/2022 12:05 PM EST) Anatomical Region Laterality Modality L-spine Computed Radiogr aphy 11/03/2022 5:18 PM EST Impressions 11/03/2022 5:22 PM EST Alignment abnormalities and degenerative change. No dynamic instability. Narrative 11/03/2022 5:22 PM EST XR LUMBOSACRAL SPINE MINIMUM 6 VIEWS, INCLUDES BENDING VIEWS COMPARISON: No relevant comparison. FINDINGS: Prominent bilateral L5 transverse processes. Levocurvature of the lumbosacral spine, centered at L3. Retrolisthesis of L3 on L4. No dynamic instability. Vertebral body heights are maintained. Mild to moderate degenerative disc disease, most notable at L5-S1. Additional degeneration in both sacroiliac joints and hips. Sacrum is obscured. Diffuse osseous demineralization. Procedure Note Oseas Alfonso MD - 11/03/2022 XR LUMBOSACRAL SPINE MINIMUM 6 VIEWS, INCLUDES BENDING VIEWS COMPARISON: No relevant comparison. FINDINGS: Prominent bilateral L5 transverse processes. Levocurvature of thelumbosacral spine, centered at L3. Retrolisthesis of L3 on L4. No dynamicinstability. Vertebral body heights are maintained. Mild to moderatedegenerative disc disease, most notable at L5-S1. Additional degenerationin both sacroiliac joints and hips. Sacrum is obscured. Diffuse osseousdemineralization. IMPRESSION: Alignment abnormalities and degenerative change. No dynamic instability. Rashaun Cherry MD IMG XR SPINE documented in this encounter Visit Diagnoses Diagnosis Spondylosis without myelopathy or radiculopathy, lumbar region- Primary Spondylosis without myelopathy or radiculopathy, lumbar region documented in this encounter Additional Health Concerns Assessment Noted Time PHQ-2 Depression Total Score: 0 06/24/20 22 6:59 AM EDT documented as of this encounter Care Teams Nocturnist Relationship Specialty Start Date End Date Sarkis Teague MD [address] [place] [address] [email or web address] PCP - General 09/10/17 Ajit Hu MD [address] [place] [phone] Cardiology 02/08/21 documented as of this encounter Additional Source Comments The information contained in this document represents components of the legal health record. It is not the complete legal health record.[facility]
--- OUTSIDE RECORDS SUMMARY | 2025-01-13 15:24 | XMS_ITS | Encounter Summary ---
Author Organization [facility] Address [address] [place] [address] Phone Care Team Providers Care Frame Wirer Name Role Phone Sarkis Teague MD Unavailable [phone] Mikaela Avila GLOBAL CEO Unavailable [phone] Argentina Jeffries GLOBAL CEO Unavailable [phone] Sarkis Teague MD Primary Care Provider Ajit Hu MD Unavailable [phone] Encounter Details Date Type Department Care Team (Late st Contact Info) Description 05/07/2018 Procedure Pass [facility], Ct Scan - [address] [address] Social History Tobacco Use Types Packs/Day Years [...] Info) Description 01/27/2025 8:00 AM EDT Appointment [facility] Internal Medicine [address] [place], [place] [phone] Sarkis Teague MD [address] [place] [address] documented as of this encounter Visit Diagnoses Not on filedocumented in this encounter Additional Health Concerns Infection Onset Date Last Indicated Resolved Time CoV-Exposed Comment:Recent close contact documented in the COVID-19 PCR/PRO order 06/29/2021 07/03/2021 07/14/2021 1:22 AM E DT documented as of this encounter Care Teams Frame Wirer Relationship Specialty Start Date End Date Sarkis Teague MD [address] [place] [address] PCP - General 09/10/17 Sarkis Teague MD [address] [place] [address] Historical LMR Provider 07/27/17 02/07/21 Mikaela Avila, RYAN [address] [place] [address] Historical LMR Provider 07/27/17 Argentina Jeffries GLOBAL CEO [address] [place] [address] Historical LMR Provider 07/27/17 02/07/21 Ajit Hu MD [address] [place] [phone] Cardiology 02/08/21 documented as of this encounter Additional Source Comments The information contained in this document represents components of the legal health record. It is not the complete legal health record.[facility]
== END 2025-01-13 13:35 | disposition home or self-care (01) ==
LOC: HO.CT 13:34
PROVIDERS: PCP Internal Medicine; Visit Provider Nurse Practitioner Family
DX: Z12.2 Encounter for screening for malignant neoplasm of respiratory organs (principal); Z87.891 Personal history of nicotine dependence
CPT/HCPCS: 71271

== ENCOUNTER → 2025-01-13 13:37 | Outpatient (BNV) | payer MEDICARE, SELFPAY | PROVIDERS: PCP Internal Medicine; Visit Provider Nuclear Medicine | DX: Z87.891 Personal history of nicotine dependence (principal) | CPT/HCPCS: 71271 ==

== ENCOUNTER 2025-02-09 09:24 | Outpatient (AMB) | payer MEDICARE, SELFPAY ==
[2025-02-09 09:26] VITALS: BP 100/56; PULSE 63; O2SAT 95; BMI 32.0
--- NOTE | 2025-02-09 09:26 | A.OFFVIS_ITS ---
Vital Signs 02/09/25 09:26 Height 5 ft 11 in Weight 229 lb 4.492 oz BMI 32.0 BP 100/56 L Blood Pressure Location Lt brachial Position Sitting Pulse 63 Pulse Source Pulse Oximeter Pulse Oximetry (%) 95 Oxygen Delivery Method Room Air Intake Visit Reasons: [place]USTIN/LDCT Follow Up Slip Cover Maker Required: No Accompanied by: Self / Same As Patient Allergies No Known Allergies Allergy (Mild, Verified 02/09/25 09:28) N/A HPI Comments Details: The patient is a 69-year-old gentleman with a known history of high blood pressure in addition to a CVA. He was having evidence of daytime drowsiness and therefore the patient underwent a sleep study. During the sleep study which was a home sleep study the patient did have evidence of nocturnal hypoxia and also an AHI of 10 events per hour consistent with mild sleep apnea. The patient started on PAP therapy. He has tried multiple masks. The nasal pillows, P 10 has been the most comfortable mask for him. We were able to download his machine. His AHI is down to 0.1. His average pressure is 12 cm. The machine is set up APAP with a ramp of 4 then starts at 8-16.The patient tolerated the pressures well. He is concerned that he does have some air leakage. Have reassured him that he is getting enough therapy that even if he has some air leakage is not affecting his response to therapy. The patient did have his mask on and we were able to check mask fit on the settings. The patient is fit was perfectly fine. Explained to him that the air will exit through the mask and therefore feel like is actually leaking. This sleep study also demonstrated that he had significant hypoxia. Therefore, in view of his underlying cardiovascular and cerebrovascular studies the patient should have a nocturnal oximetry to make sure that he is getting adequate therapy. I did talk to his [employer] company and they will perform this while he is of CPAP. also to note the patient is a former smoker. He quit about 10 years ago or less. The patient smoked for most of his life. At this point the patient still qualifies for the lung cancer screening program. I will refer him at this time. In the meantime the patient has had CT scans in the past demonstrating pulmonary nodules. He has not had a CAT scan more than a year. 04/02/2022 the patient is here for a pulmonary follow-up visit. Overall the patient has been doing well on the CPAP. The CPAP therapy has been affecting beneficial. He uses it more than 4 hours a night. Average pressure is 13. His AHI is below 1. he is tolerating the P 10 nasal pillows with a chinstrap. Working well. He does complaint of a worsening cough. Sometimes is productive in nature and typically worse in the morning. Tocq-tp-gxddgejd severity. Sometimes he feels is coming from his chest. He is wondering if he has COPD. He is participating in the lung cancer screening program. we did review his CT scan without any significant emphysema. He does have some pulmonary nodules that do need follow-up. He is scheduled to have a repeat CT scan through the lung cancer screening program in October 2022. the patient does not have any inhalers. I do believe that his cough is mainly in upper airway cough syndrome specially after using the CPAP pushing his secretions down to his post superior pharynx. I do recommend that he provides nasal washings. If the patient is no better he can always get an x-ray. The patient will return 6 months and will perform pulmonary function studies at that time. 09/26/2022 the patient is here for a pulmonary follow-up visit. The patient overall is doing well. He has been using the CPAP. The CPAP therapy continues to be affecting beneficial. Does use it for more than 4 hours a night. He has been getting supplies regularly. From a respiratory status he is also doing better. Still has some dyspnea on exertion. Mild in severity. He is active exercising and this is improving his overall exercise capacity. He is working on weight management. We did review his pulmonary function studies demonstrating normal lung Lung capacity. The patient is scheduled to have a repeat CT scan as part of the lung cancer screening program sometime in October 2022. otherwise patient is without any other concerns. 12/23/2023 the patient is here for pulmonary follow-up visit. The patient has been doing well on the CPAP. The CPAP therapy continues to be affecting and beneficial. He does use it for more than 4 hours a night. His average AHI appears to be less than 1. His average pressure is around 12. Therefore the APAP is set up 8-14 which is perfect. He is using the nasal pillows. he is using the chinstrap and this is helping him with the early. He has no significant air leak at this time. The patient states that he had COVID back few months ago. Although was not too bad. Denies any respiratory issues with it. Does have some fevers. The patient also has been participating in the lung cancer screening program. He does have a CT scan of the chest coming up in the few weeks. Will follow-up with a CT scan at that time. The patient is also wondering about other alternatives to CPAP. 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 I did not advise him on the inspire as due to the fact that this is the surgical procedure and does have risk and is not as effective as CPAP. he is going to consider the oral mandibular device. If he has any other issues he will call for an earlier assessment. Otherwise follow- up in a year's time. 02/09/2025 the patient is here for a pulmonary follow-up visit. Overall he is doing very well with CPAP. CPAP therapy has been very affecting beneficial. He does use it for more than 4 hours a night. He sometimes he does have issues with a dry mouth. He does have significant air leakage and I did recommend he wear a chinstrap. Otherwise pressures settings are adequate. For a respiratory status the patient states that he has been coughing more with a little more chest congestion. Feels like it is coming D. Nwch-bl-abfznzpl severity. Sometimes some discoloration. Denies any fevers or chills or denies any sick contacts. Therefore, he will try some Mucinex mkjm-naq-nscimez if he does not feel better if he worsens he can always call and I will send him a Z-Buster. He did undergo CT scan of the chest recently to the lung cancer screening program. This was a rods 2. We did look at it he did have some minimal emphysema. Also some stable pulmonary nodules. He should be getting another CAT scan in a year's time. [facility] Medical History (Updated 01/06/23 @ 07:57 by Maryana De La Torre PA-C) History of CVA (cerebrovascular accident) Mild ascending aorta dilatation BPH (benign prostatic hyperplasia) SNHL (sensorineural hearing loss) GERD (gastroesophageal reflux disease) Hyperlipidemia Hypertension Personal history of nicotine dependence Pulmonary nodules Nocturnal hypoxia AUSTIN (obstructive sleep apnea) Surgical History (Updated 11/05/21 @ 09:29 by Maryana De La Torre PA-C) History of prostate biopsy History of lithotripsy History of adenoidectomy History of squamous cell carcinoma excision History of endoscopy History of colonoscopy Social History (Updated 02/09/25 @ 09:29 by Dea Blanco CMA) Alcohol intake: current Alcohol intake frequency: holidays/special occasions only Patient Tobacco Use Status: Former Tobacco user Tobacco use type: Cigarette Years Smoked: onset 18, 1/2-1ppd x 40yr, 30PYH, quit 2014 Review of Systems Const Denies chills, Denies fatigue, Denies fever(s), Denies weight gain and Denies weight loss ENT Denies dizziness, Denies lip swelling and Denies tongue swelling Card Denies chest pain, Denies leg edema, Denies lightheadedness, Denies palpitations, Denies dyspnea on exertion, Denies orthopnea and Denies other Resp Reports chest congestion, Reports cough and Denies dyspnea on exertion GI Denies hematochezia and Denies change in stool character Musc Denies abnormal gait, Denies muscle weakness, Denies numbness, Denies radiating pain into limb and Denies tingling Neuro Denies abnormal gait, Denies dizziness, Denies numbness and Denies tingling Psych Denies no additional complaints Endo Denies fatigue and Denies palpitations Oral/Lymph Denies easy bleeding and Denies lymphadenopathy Aller/Immun Denies lip swelling and Denies tongue swelling Physical Exam Vital Signs: Last Vital Signs Pulse 63 02/09/25 09:26 BP 100/56 L 02/09/25 09:26 Pulse Ox 95 02/09/25 09:26 Oxygen Delivery Method Room Air 02/09/25 09:26 BMI result Body Mass Index 32.0 Const General: alert Chest Chest palpation & inspection: normal inspection of the chest Resp Effort & Inspection: normal respiratory effort Auscultation: clear to auscultation bilaterally, no crackles, no rales, no rhonchi and no wheezes Cardio Rate: regular rate Rhythm: regular rhythm Heart sounds: S1 normal heart sound present and S2 normal heart sound present GI Palpation (GI): Soft to palpation and nontender Auscultation: normal bowel sounds General: Yes no CVA tenderness Back/Spine/Pelvis Back: no CVA tenderness Assessment & Plan Assessment & Plan (1) Pulmonary nodules: Code(s): R91.8 - Other nonspecific abnormal finding of lung field Category: Medical (2) Former heavy tobacco smoker: Code(s): Z87.891 - Personal history of nicotine dependence Category: Social Hx (3) [place]IN (obstructive sleep apnea): Code(s): G47.33 - Obstructive sleep apnea (adult) (pediatric) Category: Medical (4) Nocturnal hypoxia: Code(s): G47.34 - Idiopathic sleep related nonobstructive alveolar hypoventilation Category: Medical Plan continue APAP 8-14, p10 nasal pillows chinstrap continue lung cancer screening program, LDCT 01/2026 nasal rinsing prior to CPAP mucinex DM as needed, if no better will call for a Zpack follow-up in 12 months Coding Level of Care Code Est Pt Level 4 (24774) Diagnoses Pulmonary nodules R91.8 Former heavy tobacco smoker Z87.891 [place]IN (obstructive sleep apnea) G47.33 Nocturnal hypoxia G47.34 Time Spent (min) 17
--- OUTSIDE RECORDS SUMMARY | 2025-02-09 10:18 | XMS_ITS | Encounter Summary ---
Author Organization [facility] Address [address] [place] [address] Phone Care Team Providers Care Tag Maker Name Role Phone Sarkis Teague MD Unavailable [phone] Mikaela Avila MARKING DEVICES ASSEMBLER Unavailable [phone] Argentina Jeffries MARKING DEVICES ASSEMBLER Unavailable [phone] Sarkis Teague MD Primary Care Provider [phone] Ajit Hu MD Unavailable [phone] Encounter Details Date Type Department Care Team (Late st Contact Info) Description 05/22/2020 Procedure Pass [facility], Ct Scan - [address] [address] Social History Tobacco Use Types Packs/Day Years [...] Care Team (Late st Contact Info) Description 08/18/2025 8:00 AM EST Appointment [facility] Internal Medicine [address] [place] [address] Sarkis Teague MD [address] [place] [address] documented as of this encounter Visit Diagnoses Not on filedocumented in this encounter Additional Health Concerns Infection Onset Date Last Indicated Resolved Time CoV-Exposed Comment:Recent close contact documented in the COVID-19 PCR/PRO order 06/29/2021 07/03/2021 07/14/2021 1:22 AM E DT Assessment Noted Time PHQ-2 Depression Total Score: 0 11/14/19 8:30 AM EST documented as of this encounter Care Teams Tag Maker Relationship Specialty Start Date End Date Sarkis Teague MD [address] [place] [address] PCP - General 09/10/17 Sarkis Teague MD [address] [place] [address] Historical LMR Provider 07/27/17 02/07/21 Mikaela Avila NP [address] [place] [address] Historical LMR Provider 07/27/17 Argentina Jeffries NP [address] [place] [address] Historical LMR Provider 07/27/17 02/07/21 Ajit Hu MD [address] [place] [phone] Cardiology 02/08/21 documented as of this encounter Additional Source Comments The information contained in this document represents components of the legal health record. It is not the complete legal health record.[facility]
--- OUTSIDE RECORDS SUMMARY | 2025-02-09 10:18 | XMS_ITS | Encounter Summary ---
Author Organization [facility] Address [address] [place] [address] Phone Care Team Providers Care Cigar Machine Feeder Name Role Phone Sarkis Teague MD Unavailable [phone] Mikaela Avila POLICE DISTRICT SWITCHBOARD OPERATOR Unavailable [phone] Argentina Jeffries POLICE DISTRICT SWITCHBOARD OPERATOR Unavailable [phone] Sarkis Teague MD Primary Care Provider [phone] Ajit Hu MD Unavailable [phone] Encounter Details Date Type Department Care Team (Late Contact Info) Description 05/11/2020 Procedure Pass [facility] Endoscopy Admitting Dept Virtual Department [address] [place] [address] Social History Tobacco Use Types Packs/Day Years [...] Department Care Team (Late Contact Info) Description 08/18/2025 8:00 AM EST Appointment [facility] Internal Medicine [address] [place] [address] Sarkis Teague MD [address] [place] [address] documented as of this encounter Visit Diagnoses Not on filedocumented in this encounter Additional Health Concerns Infection Onset Date Last Indicated Resolved Time CoV-Exposed Comment:Recent close contact documented in the COVID-19 PCR/PRO order 06/29/2021 07/03/2021 07/14/2021 1:22 AM E DT Assessment Noted Time PHQ-2 Depression Total Score: 0 11/14/19 8:30 AM EST documented as of this encounter Care Teams Cigar Machine Feeder Relationship Specialty Start Date End Date Sarkis Teague MD [address] [place] [address] PCP - General 09/10/17 Sarkis Teague MD [address] [place] [address] Historical LMR Provider 07/27/17 02/07/21 Mikaela Avila NP [address] [place] [address] Historical LMR Provider 07/27/17 Argentina Jeffries NP [address] [place] [address] Historical LMR Provider 07/27/17 02/07/21 Ajit Hu MD [address] [place] [phone] Cardiology 02/08/21 documented as of this encounter Additional Source Comments The information contained in this document represents components of the legal health record. It is not the complete legal health record.[facility]
--- OUTSIDE RECORDS SUMMARY | 2025-02-09 10:18 | XMS_ITS | Encounter Summary ---
Author Organization [facility] Address [address] [place] [address] Phone Care Team Providers Care Cloth Doubling Machine Operator Name Role Phone Sarkis Teague MD Unavailable [phone] Mikaela Avila SOLOIST DANCER Unavailable [phone] Argentina Jeffries SOLOIST DANCER Unavailable [phone] Sarkis Teague MD Primary Care Provider Ajit Hu MD Unavailable [phone] Encounter Details Date Type Department Care Team (Late st Contact Info) Description 10/14/2017 Procedure Pass [facility] Endoscopy Admitting Dept Virtual Department [address] [place] [address] Social History Tobacco Use Types Packs/Day Years [...] Info) Description 08/18/2025 8:00 AM EST Appointment [facility] Internal Medicine [address] [place], [place] [phone] Sarkis Teague MD [address] [place] [address] documented as of this encounter Visit Diagnoses Not on filedocumented in this encounter Additional Health Concerns Infection Onset Date Last Indicated Resolved Time CoV-Exposed Comment:Recent close contact documented in the COVID-19 PCR/PRO order 06/29/2021 07/03/2021 07/14/2021 1:22 AM E DT documented as of this encounter Care Teams Cloth Doubling Machine Operator Relationship Specialty Start Date End Date Sarkis Teague MD [address] [place] [address] PCP - General 09/10/17 Sarkis Teague MD [address] [place] [address] Historical LMR Provider 07/27/17 02/07/21 Mikaela Avila, SOLOIST DANCER [address] [place] [address] Historical LMR Provider 07/27/17 Argentian Jeffries, SOLOIST DANCER [address] [place] [address] Historical LMR Provider 07/27/17 02/07/21 Ajit Hu MD [address] [place] [address] Cardiology 02/08/21 documented as of this encounter Additional Source Comments The information contained in this document represents components of the legal health record. It is not the complete legal health record.[facility]
--- OUTSIDE RECORDS SUMMARY | 2025-02-09 10:18 | XMS_ITS | Encounter Summary ---
Author Organization [facility] Address [address] [place] [address] Phone Care Team Providers Care Tool Liaison Name Role Phone Sarkis Teague MD Unavailable [phone] Mikaela Avila DESIGN ENGINEER Unavailable [phone] Argentina Jeffries DESIGN ENGINEER Unavailable [phone] Sarkis Teague MD Primary Care Provider [phone] Ajit Hu MD Unavailable [phone] Encounter Details Date Type Department Care Team (Late st Contact Info) Description 05/22/2020 Procedure Pass [address] [place] [address] Social History Tobacco Use Types Packs/Day Years [...] Info) Description 08/18/2025 8:00 AM EST Appointment [facility] Internal Medicine [address] [place] [address] Sarkis Teague MD [address] [place], [place] documented as of this encounter Visit Diagnoses Not on filedocumented in this encounter Additional Health Concerns Infection Onset Date Last Indicated Resolved Time CoV-Exposed Comment:Recent close contact documented in the COVID-19 PCR/PRO order 06/29/2021 07/03/2021 07/14/2021 1:22 AM E DT Assessment Noted Time PHQ-2 Depression Total Score: 0 11/14/19 20 8:30 AM EST documented as of this encounter Care Teams Tool Liaison Relationship Specialty Start Date End Date Sarkis Teague MD [address] [place] [address] PCP - General 09/10/17 Sarkis Teague MD [address] [place] [address] Historical LMR Provider 07/27/17 02/07/21 Mikaela Avila, RYAN [address] [place] [address] Historical LMR Provider 07/27/17 Argentina Jeffries NP [address] [place] [address] Historical LMR Provider 07/27/17 02/07/21 Ajit Hu MD [address] [place] [address] Cardiology 02/08/21 documented as of this encounter Additional Source Comments The information contained in this document represents components of the legal health record. It is not the complete legal health record.[facility]
--- OUTSIDE RECORDS SUMMARY | 2025-02-09 10:18 | XMS_ITS | Encounter Summary ---
Author Organization [facility] Address [address] [place] [address] Phone Care Team Providers Care Photo Lab Manager Name Role Phone Sarkis Teague MD Primary Care Provider [phone] Ajit Hu MD Unavailable [phone] Reason for Referral * MRI/CAT Scan - Closed Specialty Diagnoses / Procedures Referred By Contac t Referred To Contact Radiology Procedures Outside CT [facility] [address] [place] [address] Referral ID Status Reason Start Date Expiration Date Visits Re quested Visits Authorized [id number] Closed 01/16/2025 1 1 Encounter Details Date Type Department Care Team (Late st Contact Info) Description 01/16/2025 Orders Only [facility] Medical [facility] Internal Medicine [address] [place] [address] Provider, MD Mitchell [address] [place] [address] Social History Tobacco Use Types Packs/Day Years Used Date Smoking Tobacco: Former Cigarettes 0.8 20 0 10/21/1971 - 10/21/1991 Passive Smoke Exposure: Past Smokeless Tobacco: Never Passive Exposure Comments:fa ther smoked in the house Alcohol Use Standard [...] Info) Description 08/18/2025 8:00 AM EST Appointment [facility] Internal Medicine [address] [place] [address] Sarkis Teague MD 40 [place] [address] documented as of this encounter Procedures Procedure Name Priority Date/Time Associated Diagnosis Comments OUTSIDE CT IMAGING REPORT ONLY Routine 01/13/2025 2:51 PM EDT documented in this encounter Results * Outside CT Imaging Report Only (01/13/2025 2:51 PM EDT) Historical Provider MD EARLY CT documented in this encounter Visit Diagnoses Not on filedocumented in this encounter Additional Health Concerns Assessment Noted Time PHQ-2 Depression Total Score: 0 07/19/20 24 2:01 PM EDT documented as of this encounter Care Teams Photo Lab Manager Relationship Specialty Start Date End Date Sarkis Teague MD 40 [place] [address] PCP - General 09/10/17 Ajit Hu MD 40 [place] [address] Cardiology 02/08/21 documented as of this encounter Additional Source Comments The information contained in this document represents components of the legal health record. It is not the complete legal health record.[facility]
--- OUTSIDE RECORDS SUMMARY | 2025-02-09 10:18 | XMS_ITS | Encounter Summary ---
Author Organization [facility] Address [address] [place] [address] [place] [address] Phone Care Team Providers Care United [place] Marshal Name Role Phone Sarkis Teague MD Primary Care Provider [phone] Ajit Hu MD Unavailable [phone] Encounter Details Date Type Department Care Team (Late st Contact Info) Description 05/25/2023 Procedure Pass [facility] Endoscopy Admitting Dept Virtual Department [address] [place] [address] Social History Tobacco Use Types Packs/Day Years [...] high school, GED, job training, learning the Spanish language, technical skills, or developing parenting skills)? [...] Info) Description 08/18/2025 8:00 AM EST Appointment [facility] Internal Medicine [address] [place] [address] Sarkis Teague MD 40 [place] [address] [email or web address] documented as of this encounter Visit Diagnoses Not on filedocumented in this encounter Additional Health Concerns Assessment Noted Time PHQ-2 Depression Total Score: 0 06/24/20 22 6:59 AM EDT documented as of this encounter Care Teams United States Marshal Relationship Specialty Start Date End Date Sarkis Teague MD [address] [place] [address] [email or web address] PCP - General 09/10/17 Ajit Hu MD [address] [place] [address] Cardiology 02/08/21 documented as of this encounter Additional Source Comments The information contained in this document represents components of the legal health record. It is not the complete legal health record.[facility]
--- OUTSIDE RECORDS SUMMARY | 2025-02-09 10:18 | XMS_ITS | Encounter Summary ---
Author Organization [facility] Address [address] [place] [address] Phone Care Team Providers Care Lightning Protection Installer Name Role Phone Sarkis Teague MD Primary Care Provider [phone] Ajit Hu MD Unavailable [phone] Encounter Details Date Type Department Care Team (Late st Contact Info) Description 02/01/2025 Orders Only [facility] Health Info Management Virtual Department [address] [place] [address] Provider, MD Mitchell [address] [place] [address] Social History Tobacco Use Types Packs/Day [...] 08/18/2025 8:00 AM EST Appointment [facility] Internal Medicine [address] [place] [address] Sarkis Teague MD 40 [place] [address] documented as of this encounter Procedures Procedure Name Priority Date/Time Associated Diagnosis Comments OUTSIDE CARDIOLOGY Routine 09/14/2024 4:29 PM EST documented in this encounter Results * Outside Cardiology Report Only (09/14/2024 4:29 PM EST) Historical Provider CV CARDIAC SERVIC ES ORDERABLES documented in this encounter Visit Diagnoses Not on filedocumented in this encounter Additional Health Concerns Assessment Noted Time PHQ-2 Depression Total Score: 0 07/19/20 24 2:01 PM EDT documented as of this encounter Care Teams Lightning Protection Installer Relationship Specialty Start Date End Date Sarkis Teague MD 40 [place] [address] PCP - General 09/10/17 Ajit Hu MD 40 [place] [address] Cardiology 02/08/21 documented as of this encounter Additional Source Comments The information contained in this document represents components of the legal health record. It is not the complete legal health record.[facility]
--- OUTSIDE RECORDS SUMMARY | 2025-02-09 10:18 | XMS_ITS | Encounter Summary ---
Author Organization [facility] Address [address] [place] [address] Phone Care Team Providers Care Flexible Nanny Name Role Phone Sarkis Teague MD Unavailable [phone] Mikaela Avila INSPECTOR TOOL Unavailable Argentina Jeffries INSPECTOR TOOL Unavailable [phone] Sarkis Teague MD Primary Care Provider Ajit Hu MD Unavailable [phone] Encounter Details Date Type Department Care Team (Late st Contact Info) Description 10/16/2017 Procedure Pass [place] Admitting Dept - Virtual Department [address] [place] [address] Social History Tobacco Use Types Packs/Day Years [...] 08/18/2025 8:00 AM EST Appointment [facility] Internal Medicine [address] [place], [place] [phone] Sarkis Teague MD [address] [place] [address] documented as of this encounter Visit Diagnoses Not on filedocumented in this encounter Additional Health Concerns Infection Onset Date Last Indicated Resolved Time CoV-Exposed Comment:Recent close contact documented in the COVID-19 PCR/PRO order 06/29/2021 07/03/2021 07/14/2021 1:22 AM E DT documented as of this encounter Care Teams Flexible Nanny Relationship Specialty Start Date End Date Sarkis Teague MD 40 [place] [address] PCP - General 09/10/17 Sarkis Teague MD [address] [place] [address] Historical LMR Provider 07/27/17 02/07/21 Mikaela Avila, INSPECTOR TOOL [address] [place] [address] Historical LMR Provider 07/27/17 Argentina Jeffries, INSPECTOR TOOL [address] [place] [address] Historical LMR Provider 07/27/17 02/07/21 Ajit Hu MD [address] [place] [address] Cardiology 02/08/21 documented as of this encounter Additional Source Comments The information contained in this document represents components of the legal health record. It is not the complete legal health record.[facility]
--- OUTSIDE RECORDS SUMMARY | 2025-02-09 10:19 | XMS_ITS | Encounter Summary ---
Author Organization [facility] Address [address] [place] [address] Phone Care Team Providers Care Batch Plant Supervisor Name Role Phone Sarkis Teague MD Unavailable Mikaela Avila CERTIFIED PATHOLOGY ASSISTANT Unavailable [phone] Argentina Jeffries CERTIFIED PATHOLOGY ASSISTANT Unavailable Sarkis Teague MD Primary Care Provider [phone] Ajit Hu MD Unavailable [phone] Encounter Details Date Type Department Care Team (Late st Contact Info) Description 01/21/2018 Procedure Pass [place] Admitting Dept - Virtual Department [address] [place] [id number] Social History Tobacco Use Types Packs/Day Years [...] Info) Description 08/18/2025 8:00 AM EST Appointment [facility] Internal Medicine [address] [place], [place] [phone] Sarkis Teague MD [address] [place] [address] documented as of this encounter Visit Diagnoses Not on filedocumented in this encounter Additional Health Concerns Infection Onset Date Last Indicated Resolved Time CoV-Exposed Comment:Recent close contact documented in the COVID-19 PCR/PRO order 06/29/2021 07/03/2021 07/14/2021 1:22 AM E DT documented as of this encounter Care Teams Batch Plant Supervisor Relationship Specialty Start Date End Date Sarkis Teague MD [address] [place] [address] PCP - General 09/10/17 Sarkis Teague MD [address] [place] [address] Historical LMR Provider 07/27/17 02/07/21 Mikaela Avila, RYAN [address] [place] [address] Historical LMR Provider 07/27/17 Argentina Jeffries CERTIFIED PATHOLOGY ASSISTANT [address] [place] [address] Historical LMR Provider 07/27/17 02/07/21 Ajit Hu MD [address] [place] [phone] Cardiology 02/08/21 documented as of this encounter Additional Source Comments The information contained in this document represents components of the legal health record. It is not the complete legal health record.[facility]
--- OUTSIDE RECORDS SUMMARY | 2025-02-09 10:19 | XMS_ITS | Clinical Summary ---
Author Organization [facility] Address [address] [place] [address] Phone Care Team Providers Care Supervisor Shearing Name Role Phone Sarkis Staples MD Primary Care Provider [phone] Ajit Hu MD Unavailable [phone] Allergies Active Allergy Reactions Criticality Noted Date [...] Overview (04/21/2024): Pt saw Dr. L[place] at [place] [facility] 03/29/24 for mult skin lesions evaluation [...] transition to oral levaquin depending on sensitivities Encounters Date Type Department Care Team Description 02/01/2025 Orders Only [facility] Health Info Management Virtual Department [address] [place] [address] Mitchell Quinones MD 01/27/2025 8:55 AM EDT - 01/27/2025 11:59 PM EDT Hospital Encounter [facility] Laboratory [address] [place] [address] Sarkis Staples MD Discharge Disposition: Home or Self Care 01/27/2025 8:00 AM EDT Office Visit [facility] Internal Medicine [address] [place] [address] Sarkis Staples MD Primary hypertension (Primary Dx); Gastroesophageal reflux disease without esophagitis; Pure hypercholesterolemia ; Impaired fasting glucose 01/16/2025 Orders Only [facility] Internal Medicine [address] [place] [address] ProviderMitchell MD from Last 3 Months Immunizations Name Administration Dates Next Due COVID-19 [...] Sign Reading Time Taken Comments Blood Pressure 108/63 01/27/2025 7:51 AM EDT Pulse 62 01/27/2025 7:51 AM EDT Temperature 36.7 ??C (98.1 ??F) 01/27/2025 7:51 AM ED T Respiratory Rate 16 01/27/2025 7:51 AM EDT Oxygen Saturation 95% 01/27/2025 7:51 AM EDT Inhaled Oxygen Concentration - - Weight 104.2 kg (229 lb 12.8 oz) 01/27/2025 7:51 AM EDT Height 177.5 cm (5' 9.88 ) 01/27/2025 7:51 AM ED T Body Mass Index 33.08 01/27/2025 7:51 AM EDT Plan of Treatment Upcoming Encounters Date Type Department Care Team (Late st Contact Info) Description 08/18/2025 8:00 AM EST Appointment [facility] Internal Medicine [address] [place] [address] Sarkis Staples MD 40 [place] [address] [email or web address] Health Maintenance Due Date Last Done Comments COLOGUARD 1999 FIT TEST 1999 FOBT 1999 SIGMOIDOSCOPY 1999 VIRTUAL COLONOSCOPY 1999 DEPRESSION SCREENING 07/19/2025 07/19/2024 BLOOD PRESSURE 07/29/2025 01/27/2025 Adult Td,Tdap Booster 11/13/2025 11/13/2015, 003 POTASSIUM LEVEL 01/27/2026 01/27/2025, 01/2024, 07/10/2023, Additional history exists COLONOSCOPY 05/25/2026 05/25/2023, 04/13, 11/11/2011 COLORECTAL CANCER SCREENING 05/25/2026 LIPID PANEL 07/15/2029 07/15/2024, 06/13, 12/30/2022, Additional history exists HEPATITIS C SCREENING Completed 05/10/2018 ABDOMINAL AORTIC ANEURYSM (AAA) SCREENING Completed 02/28/2021, 10/14/2017 PNEUMOCOCCAL VACCINES (50+ years) Completed 06/20/2021, 11/14/2019 ZOSTER VACCINES Completed 03/25/2023, 0410/2022, 10/10/2016 RSV VACCINE Completed 09/07/2023 COVID-19 VACCINE Completed 09/14/2024, , 07/10/2022, Additional history exists SMOKING STATUS SCREENING (Once After 26 Yrs) Completed 01/27/2025 HEPATITIS A VACCINES Aged Out No long er eligible based on patient's age to complete this topic HIB VACCINES Aged Out No longer eligi ble based on patient's age to complete this topic MENINGOCOCCAL VACCINES (ACWY) Aged Out No longer eligible based on patient's age to complete this topic Medical Devices Not on file Procedures Procedure Name Priority Date/Time Associated Diagnosis Comments COMPREHENSIVE METABOLIC PANEL Routine 01/27/2025 9:00 AM EDT Primary hypertension Gastroesophageal reflux disease without esophagitis Pure hypercholesterolemia HEMOGLOBIN A1C Routine 01/27/2025 9:00 AM EDT Impaired fasting glucose MAGNESIUM Routine 01/27/2025 9:00 AM EDT Primary hypertension OUTSIDE CT IMAGING REPORT ONLY Routine 01/13/2025 2:51 PM EDT LIPID PANEL Routine 07/15/2024 10:46 AM EDT Pure hypercholesterolemia ENDOSCOPY, COLON 05/25/2023 11:06 AM EDT US ABDOMINAL AORTIC SCREENING Routine 02/28/2021 9:12 AM EDT Screening for AAA (abdominal aortic aneurysm) HEPATITIS C ANTIBODY, QUALITATIVE Routine 05/10/2018 8:38 AM EDT Antibody response exam from Last 3 Months or Most Recently Relevant to Health Maintenance Results * (ABNORMAL) Comprehensive metabolic panel (01/27/2025 9:00 AM EDT) SODIUM 141 133 - 146 mmol/L [facility] POTASSIUM 3.9 3.3 - 5.1 mmol/L [facility] CHLORIDE 102 96 - 108 mmol/L [facility] CO2 31 21 - 35 mmol/L [facility] BUN 13 6 - 19 mg/dL [facility] CREATININE 1.10 0.5 - 1.5 mg/dL [facility] GLUCOSE 107(H) 70 - 99 mg/dL [facility] ALBUMIN 4.6 3.9 - 4.8 g/dL [facility] TOTAL PROTEIN 7.2 6.5 - 8.0 g/dL [facility] CALCIUM 9.4 8.4 - 10.3 mg/dL [facility] ALKALINE PHOSPHATASE 97 39 - 117 U/L [facility] TOTAL BILIRUBIN 0.6 0.0 - 1.2 mg/dL [facility] AST 22 0 - 37 U/L [facility] ALT 33 0 - 40 U/L [facility] GLOBULIN 2.6 1 - 4.8 g/dL [facility] EGFR 72 >59 mL/min/1.7 3m2 [facility] Comment:Estimated glomerular filtration rate calculated using the CKD-EPI refit equation. ANION GAP 12 10 - 20 mmol/L [facility] Blood 01/27/2025 9:00 AM EDT 01/27/2025 9:02 AM EDT Sarkis Staples MD LAB BLOOD ORDERABLES Performing Organization Address [facility] Co de Phone Number [address] [place] [address] [address] * Magnesium (01/27/2025 9:00 AM EDT) MAGNESIUM 2.2 1.6 - 2.6 mg/dL [facility] Blood 01/27/2025 9:00 AM EDT 01/27/2025 9:02 AM EDT Sarkis Staples MD LAB BLOOD ORDERABLES [address] [place] [address] [address] * Hemoglobin A1c (01/27/2025 9:00 AM EDT) HEMOGLOBIN A1C 5.5 4.3 - 5.8 % [facility] Blood 01/27/2025 9:00 AM EDT 01/27/2025 9:03 AM EDT Sarkis Staples MD LAB BLOOD ORDERABLES Performing Organization Address City/[facility]/ZIP Co de Phone Number [address] [address] * Outside CT Imaging Report Only (01/13/2025 2:51 PM EDT) Historical Provider IMG CT * (ABNORMAL) Lipid panel (07/15/2024 10:46 AM EDT) HDL 60 mg/dL [facility] Comment: ? Interpretation <40 mg/dL: Low HDL cholesterol (major risk factor for CHD) Greater than or equal to 60 mg/dL: High HDL cholesterol ( negative risk factor for CHD) HDL - cholesterol is affected by a number of factors, e.g. smoking, excerise, hormones, sex and age. CHOLESTEROL 150 0 - 240 mg/dL [facility] TRIGLYCERIDES 77 30 - 160 mg/dL [facility] LDL 75 50 - 129 mg/dL [facility] Comment: LDL levels in terms of risk for coronary heart disease: <100 mg/dL: Optimal 100-129 mg/dL: Near or above optimal 130-159 mg/dL: Borderline high 160-189 mg/dL: High >190 mg/dL: Very High CARDIAC RISK RATIO 2.5(L) 3.4 - 5.0 C [facility] Blood 07/15/2024 10:4 6 AM EDT 07/15/2024 10:51 AM EDT Sarkis Staples MD LAB BLOOD ORDERABLES [facility] [address] [place] [address] * ENDOSCOPY, COLON (05/25/2023 11:06 AM EDT) Narrative Transcriptions Damien Melendez MD - 05/25/2023 11:06 AM EDT [facility] Patient Name: Ko Sapp Attending MD:: DAMIEN MELENDEZ MD, Procedure Date: 05/25/2023 11:06 AM Date of : 1955 Age: 68 Admit Type: Outpatient Gender: Male Room: [place] [address] Referring MD: SARKIS STAPLES MD Exam Type: Colonoscopy Indications: Surveillance: Personal [...] monitored continuously. The Olympus adult variable colonoscope [id number] #2 was introduced through the anus and [...] years for surveillance of multiple polyps. DAMIEN MELENDEZ MD 05/25/2023 11:48:46 AM This report has been signed electronically. Number of Addenda: 0 Note Initiated On: 05/25/2023 11:06 AM Procedure Code(s): --- Professional --- 47351, Colonoscopy, flexible; with removal of tumor(s), polyp(s), or other lesion(s) by snare technique --- Technical --- 70964, Colonoscopy, flexible; with removal of tumor(s), polyp(s), [...] or abscess without bleeding CPT copyright 2021 [employer]. All rights reserved. The codes documented in this report are preliminary and upon freelance recruiter reviewmay be revised to meet current compliance requirements. Procedure Date: 05/25/2023 11:06:[address] [place] [address] Sarkis Staples MD GI PROCEDURE ORDERAB LES * US [...] imaging from November 2017 and ultrasound abdomen studyOctober 14, 2017. Proximal aorta is measured at 2.3 x 2.2 cm, tapering to 2.1 x 1.9 cm andthen essentially stating unchanged through the bifurcation of the distalaorta measured at 2.1 x 2.0 cm. Right iliac is measured at 1.4 x 1.3 cmand left common iliac 1.2 cm x 1.2 cm. IMPRESSION: No abdominal aortic aneurysm. Sarkis Staples MD IMG US ABDOMEN * Hepatitis C antibody, qualitative (05/10/2018 8:38 AM EDT) HCV Negative Negative [facility] Comment: This is a screening test and should be confirmed with molecular testing Blood 05/10/2018 8:38 AM EDT 05/10/2018 8:42 AM EDT Sarkis Staples MD LAB BLOOD ORDERABLES [facility] [address] [place] [address] from Last 3 Months or Most Recently Relevant to Health Maintenance [facility] Personal/Family Self [address] [place] [address] [facility] Personal/Family Self [address] [place] [address] Ko Sapp Personal/Family Self 1955 [address] [place] [address] Ko Sapp Personal/Family Self 1955 [address] [place] [address] Advance Directives For more information, please contact: [phone] (9AM - 5PM [facility], Thursday-Thursday) * Full Code (Confirmed) (Latest Code Status on File) Date Activated Date Inactivated Comments 10/14/2017 4:58 PM 10/17/2017 3:48 PM Question Answer Comments Code Discussion Comments: patient Care Teams Supervisor Shearing Relationship Specialty Start Date End Date Sarkis Staples MD [address] [place] [address] [email or web address] PCP - General 09/10/17 Ajit Hu MD [address] [place] [phone] Cardiology 02/08/21 Additional Source Comments The information contained in this document represents components of the legal health record. It is not the complete legal health record.[facility]
--- OUTSIDE RECORDS SUMMARY | 2025-02-09 10:19 | XMS_ITS | Encounter Summary ---
Author Organization [facility] Address [address] [place] [address] Phone Care Team Providers Care Canvas Cutter Machine Name Role Phone Sarkis Teague MD Primary Care Provider [phone] Ajit Hu MD Unavailable [phone] Encounter Details Date Type Department Care Team (Late st Contact Info) Description 02/14/2021 Ancillary Orders [facility], X-Ray - [address] [place] [address] Rashaun Cherry MD [address] [place] [phone] Rotator cuff syndrome of right shoulder Social [...] Info) Description 08/18/2025 8:00 AM EST Appointment [facility] Internal Medicine [address] [place] [address] Sarksi Teague MD [address] [place] [address] [email or web address] Merchant documented as of this encounter Results * [...] documented as of this encounter Care Teams Canvas Cutter Machine Relationship Specialty Start Date End Date Sarkis Teague MD [address] [place] [address] [email or web address] PCP - General 09/10/17 Ajit Hu MD [address] [place] [address] Cardiology 02/08/21 documented as of this encounter Additional Source Comments The information contained in this document represents components of the legal health record. It is not the complete legal health record.[facility]
--- OUTSIDE RECORDS SUMMARY | 2025-02-09 10:19 | XMS_ITS | Encounter Summary ---
Author Organization [facility] Address [address] [place] [address] Phone Care Team Providers Care Apprentice Plumber Name Role Phone Sarkis Teague MD Primary Care Provider [phone] Ajit Hu MD Unavailable [phone] Encounter Details Date Type Department Care Team (Latest Contact Info) Description 10/29/2022 Transcribe Orders Virtual Department [address] [place] [address] Rashaun Cherry MD [address] [place] [address] [phone] Spondylosis without myelopathy or radiculopathy, lumbar region [...] high school, GED, job training, learning the Sammarinese language, technical skills, or developing parenting skills)? [...] Info) Description 08/18/2025 8:00 AM EST Appointment [facility] Internal Medicine [address] [place] [address] Sarkis Teague MD [address] [place] [address] [email or web address] documented as of this encounter Results * [...] documented as of this encounter Care Teams Apprentice Plumber Relationship Specialty Start Date End Date Sarkis Teague MD [address] [place] [address] [email or web address] PCP - General 09/10/17 Ajit Hu MD [address] [place] [phone] Cardiology 02/08/21 documented as of this encounter Additional Source Comments The information contained in this document represents components of the legal health record. It is not the complete legal health record.[facility]
--- OUTSIDE RECORDS SUMMARY | 2025-02-09 10:19 | XMS_ITS | Encounter Summary ---
Author Organization [facility] Address [address] [place] [address] Phone Care Team Providers Care Director Search Marketing Strategies Name Role Phone Sarkis Teague MD Unavailable Mikaela Avila PEER SUPPORT SPECIALIST Unavailable [phone] Argentina Jeffries PEER SUPPORT SPECIALIST Unavailable [phone] Sarkis Teague MD Primary Care Provider Ajit Hu MD Unavailable [phone] Encounter Details Date Type Department Care Team (Late st Contact Info) Description 11/09/2017 Procedure Pass [facility], [address] [address] Social History Tobacco Use Types Packs/Day Years [...] Info) Description 08/18/2025 8:00 AM EST Appointment [facility] Internal Medicine [address] [place], [place] [phone] Sarkis Teague MD [address] [place] [address] documented as of this encounter Visit Diagnoses Not on filedocumented in this encounter Additional Health Concerns Infection Onset Date Last Indicated Resolved Time CoV-Exposed Comment:Recent close contact documented in the COVID-19 PCR/PRO order 06/29/2021 07/03/2021 07/14/2021 1:22 AM E DT documented as of this encounter Care Teams Director Search Marketing Strategies Relationship Specialty Start Date End Date Sarkis Teague MD [address] [place] [address] PCP - General 09/10/17 Sarkis Teague MD [address] [place] [address] Historical LMR Provider 07/27/17 02/07/21 Mikaela Avila, PEER SUPPORT SPECIALIST [address] [place] [address] Historical LMR Provider 07/27/17 Argentina Jeffries, PEER SUPPORT SPECIALIST [address] [place] [address] Historical LMR Provider 07/27/17 02/07/21 Ajit Hu MD [address] [place] [address] Cardiology 02/08/21 documented as of this encounter Additional Source Comments The information contained in this document represents components of the legal health record. It is not the complete legal health record.[facility]
--- OUTSIDE RECORDS SUMMARY | 2025-02-09 10:19 | XMS_ITS | Encounter Summary ---
Author Organization [facility] Address [address] [place] [address] [place] [address] Phone Care Team Providers Care Mural Painter Name Role Phone Sarkis Teague MD Unavailable [phone] Mikaela Avila MOBILE LAB TECHNICIAN Unavailable [phone] Argentina Jeffries MOBILE LAB TECHNICIAN Unavailable [phone] Sarkis Teague MD Primary Care Provider [phone] Ajit Hu MD Unavailable [phone] Encounter Details Date Type Department Care Team (Latest Contact Info) Description 01/14/2018 Transcribe Orders [facility] Laboratory [address] [place] [address] Dorina Torres MD [address] [place] [address], [address] [place], [place] [phone] [email or web address] Neoplasm of uncertain behavior of liver and [...] Info) Description 08/18/2025 8:00 AM EST Appointment [facility] Internal Medicine [address] [place], [place] [phone] Sarkis Teague MD [address] [place] [address] [email or web address] documented as of this encounter Results * (ABNORMAL) CBC and differential (01/14/2018 8:44 AM EDT) WBC 8.12 3.40 - 11.20 K/uL [facility] RBC 5.27 4.50 - 5.50 M/uL [facility] HGB 16.4 13.0 - 17.0 g/dL [facility] HCT 47.4 40.0 - 51.0 % [facility] PLT 234 130 - 400 K/uL [facility] MCV 89.9 79.0 - 98.0 fL [facility] MCH 31.1 27.0 - 34.8 pg [facility] MCHC 34.6 31.5 - 36.0 g/dL [facility] RDW 12.0 10.8 - 14.6 % [facility] MPV 10.6 9.4 - 12.4 fl [facility] NRBC 0.00 /100 WBCs [facility] ABSOLUTE NRBC 0.00 K/uL [facility] DIFF METHOD Auto [facility] NEUTS 70.0 45.30 - 77.70 % [facility] LYMPHS 17.7 12.30 - 39.70 % [facility] MONOS 9.1 4.10 - 12.80 % [facility] EOS 2.2 0 - 7.2 % [facility] BASOS 0.6 0 - 2.80 % [facility] Granulocytes, immature (%) 0.4 0.0 - 0.9 % [facility] ABSOLUTE NEUTS 5.68 1.40 - 7.70 K/uL [facility] ABSOLUTE LYMPHS 1.44 0.60 - 3.20 K/uL [facility] ABSOLUTE MONOS 0.74(H) 0.11 - 0.59 K/uL [facility] ABSOLUTE EOS 0.18 0.01 - 0.50 K/uL [facility] ABSOLUTE BASOS 0.05 0.00 - 0.08 K/uL [facility] Granulocytes, immature 0.03 0.00 - 0.05 K/uL [facility] Blood 01/14/2018 8:44 AM EDT 01/14/2018 8:48 AM EDT Dorina Torres MD LAB BLOOD ORDERABLES [address] [address] * LFTs (hepatic panel) (01/14/2018 8:44 AM EDT) ALKALINE PHOSPHATASE 88 39 - 117 U/L [facility] TOTAL BILIRUBIN 0.7 0.0 - 1.2 mg/dL [facility] DIRECT BILIRUBIN <0.2 0 - 0.3 mg/dL [facility] Bilirubin (Indirect) NOT CALCULATED 0 - 1.5 mg/dL [facility] AST 19 0 - 37 U/L [facility] ALT 23 0 - 40 U/L [facility] TOTAL PROTEIN 7.3 6.5 - 8.0 g/dL [facility] ALBUMIN 4.7 3.9 - 4.8 g/dL [facility] GLOBULIN 2.6 1 - 4.8 g/dL [facility] A/G Ratio 1.81 1.00 - 4.80 RATIO [facility] Blood 01/14/2018 8:44 AM EDT 01/14/2018 8:48 AM EDT Dorina Torres MD LAB BLOOD ORDERABLES Performing Organization Address City/[facility]/ZIP Co de Phone Number [address] [address] documented in this encounter Visit Diagnoses Diagnosis 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 documented in this encounter Additional Health Concerns Infection Onset Date Last Indicated Resolved Time CoV-Exposed Comment:Recent close contact documented in the COVID-19 PCR/PRO order 06/29/2021 07/03/2021 07/14/2021 1:22 AM E DT documented as of this encounter Care Teams Mural Painter Relationship Specialty Start Date End Date Sarkis Teague MD [address] [place] [address] PCP - General 09/10/17 Srakis Teague MD [address] [place] [address] Historical LMR Provider 07/27/17 02/07/21 Mikaela Avila NP [address] [place] [address] Historical LMR Provider 07/27/17 Argentina Jeffries NP [address] [place] [address] Historical LMR Provider 07/27/17 02/07/21 Ajit Hu MD [address] [place] [address] Cardiology 02/08/21 documented as of this encounter Additional Source Comments The information contained in this document represents components of the legal health record. It is not the complete legal health record.[facility]
--- OUTSIDE RECORDS SUMMARY | 2025-02-09 10:19 | XMS_ITS | Encounter Summary ---
Author Organization [facility] Address [address] [place] [address] Phone Care Team Providers Care Hose Seamer Name Role Phone Sarkis Teague MD Unavailable [phone] Mikaela Avila PUBLIC RELATIONS SUPERVISOR Unavailable [phone] Argentina Jeffries PUBLIC RELATIONS SUPERVISOR Unavailable [phone] Sarkis Teague MD Primary Care Provider [phone] Ajit Hu MD Unavailable [phone] Encounter Details Date Type Department Care Team (Late st Contact Info) Description 11/24/2017 Ancillary Orders [facility],Outside Imaging [address] [place], [place] [phone] System, Provider Not In, [place] [address] Social History Tobacco Use Types Packs/Day Years [...] Info) Description 08/18/2025 8:00 AM EST Appointment [facility] Internal Medicine [address] [place], [place] [phone] Sarkis Teague MD [address] [place], [place] [phone] documented as of this encounter Results * [...] documented as of this encounter Care Teams Hose Seamer Relationship Specialty Start Date End Date Sarkis Teague MD [address] [place] [address] PCP - General 09/10/17 Sarkis Teague MD [address] [place] [address] Historical LMR Provider 07/27/17 02/07/21 Mikaela Avila NP [address] [place] [address] Historical LMR Provider 07/27/17 Argentina Jeffries NP [address] [place] [address] [place] [address] Historical LMR Provider 07/27/17 02/07/21 Ajit Hu MD [address] [place] [address] Cardiology 02/08/21 documented as of this encounter Additional Source Comments The information contained in this document represents components of the legal health record. It is not the complete legal health record.[facility]
--- OUTSIDE RECORDS SUMMARY | 2025-02-09 10:19 | XMS_ITS | Encounter Summary ---
Author Organization [facility] Address [address] [place] [address] Phone Care Team Providers Care Molded Parts Inspector Name Role Phone Sarkis Teague MD Unavailable [phone] Mikaela Avila RADIO DISPATCHER Unavailable [phone] Argentina Jeffries RADIO DISPATCHER Unavailable Sarkis Teague MD Primary Care Provider [phone] Ajit Hu MD Unavailable [phone] Encounter Details Date Type Department Care Team (Late st Contact Info) Description 05/07/2018 Procedure Pass [facility], Ct Scan - [address] [address] Social History Tobacco Use Types Packs/Day Years [...] Appointment [facility] Internal Medicine [address] [place], [place] [phone] Sarkis Teague MD [address] [place] [address] documented as of this encounter Visit Diagnoses Not on filedocumented in this encounter Additional Health Concerns Infection Onset Date Last Indicated Resolved Time CoV-Exposed Comment:Recent close contact documented in the COVID-19 PCR/PRO order 06/29/2021 07/03/2021 07/14/2021 1:22 AM E DT documented as of this encounter Care Teams Molded Parts Inspector Relationship Specialty Start Date End Date Sarkis Teague MD [address] [place] [address] PCP - General 09/10/17 Sarkis Teague MD [address] [place] [address] Historical LMR Provider 07/27/17 02/07/21 Mikaela Avila, RYAN [address] [place] [address] Historical LMR Provider 07/27/17 Argentina Jeffries NP [address] [place] [address] Historical LMR Provider 07/27/17 02/07/21 Ajit Hu MD [address] [place] [address] Cardiology 02/08/21 documented as of this encounter Additional Source Comments The information contained in this document represents components of the legal health record. It is not the complete legal health record.[facility]
== END 2025-02-09 10:12 | disposition home or self-care (01) ==
LOC: HO.HPS 09:25
PROVIDERS: PCP Internal Medicine; Visit Provider Hospitalist
DX: R91.8 Other nonspecific abnormal finding of lung field (principal); Z87.891 Personal history of nicotine dependence; G47.33 Obstructive sleep apnea (adult) (pediatric); G47.34 Idiopathic sleep related nonobstructive alveolar hypoventilation
CPT/HCPCS: 99214

== ENCOUNTER → 2025-02-09 09:24 | Outpatient (BNVA) | payer MEDICARE, SELFPAY | PROVIDERS: PCP Internal Medicine; Visit Provider Hospitalist | DX: R91.8 Other nonspecific abnormal finding of lung field (principal); G47.34 Idiopathic sleep related nonobstructive alveolar hypoventilation; G47.33 Obstructive sleep apnea (adult) (pediatric); Z87.891 Personal history of nicotine dependence | CPT/HCPCS: 99212 ==